=== PATIENT | male | born 1980 | race Caucasian/White ===

== ENCOUNTER 2016-12-23 16:10 | Emergency (ER) | payer MEDICAID, OTHER ==
[~2016-12-23] VITALS: Ht 170.2 cm; Wt 86.2 kg
[2016-12-23 16:15] VITALS: BP 173/107
--- NOTE | 2016-12-23 16:39 | NUR ---
Pt taken to bed 7.
--- NOTE | 2016-12-23 16:44 | NUR ---
36/M PRESENTS TO ED FOR EVALAUTION OF LEFT SIDE/RIB PAIN X3 WEEKS. PT EXPLAINS IS CYPRIOT THAT HE CAME HOME FROM WORK, TOOK OFF HIS WORK SHOES, PLACED ON SANDALS AND TRIPPED OVER HIS WORK SHOES AND LANDED ON THE COUCH. PT DENIES ANY SOB BUT C/O WORSENING PAIN WHEN HE SNEEZES. PT C/O 8/10, ACHING, NON RADIATING PAIN. PT IS AOX4, CYPRIOT SPEAKING WITH CLEAR SPEECH. PT APPEARS CALM AND RELAXED. AT BEDSIDE.
--- NOTE | 2016-12-23 16:53 | NUR ---
Patient being evaluated by physician at bedside.
[2016-12-23] MEDS ORDERED: HYDROcodone/APAP 5/325 MG 1 TAB TAB PO ONE (17:00)
--- NOTE | 2016-12-23 17:15 | NUR ---
Patient taken to x-ray via w/c.
--- NOTE | 2016-12-23 17:22 | NUR ---
Patient returned from x-ray via w/c and placed into bed 7.
[2016-12-23 17:49] VITALS: BP 152/84
--- NOTE | 2016-12-23 17:49 | NUR ---
Chart checked and completed. The patient's care was reviewed and supervised by David Mcdonough RN.
--- NOTE | 2016-12-23 17:49 | NUR ---
Patient discharged with v/s stable. Written and verbal after care instructions given and explained. Patient alert, oriented and verbalized understanding of instructions. Ambulatory with steady gait. All questions addressed prior to discharge. ID band removed. Patient advised to follow up with PMD. Rx of NORCO,MOTRIN given. Patient educated on indication of medication including possible reaction and side effects. Opportunity to ask questions provided and answered.
== END 2016-12-23 17:49 | disposition home or self-care (01) ==
LOC: MED 16:10
DX: S20.212A Contusion of left front wall of thorax, initial encounter (principal); W01.0XXA Fall on same level from slipping, tripping and stumbling without subsequent striking against object, initial encounter; Y93.89 Activity, other specified; Y92.89 Other specified places as the place of occurrence of the external cause; Y99.8 Other external cause status
CPT/HCPCS: 71020; 93005; 99284

== ENCOUNTER 2017-06-26 09:04 | Inpatient (IN) | payer OTHER ==
[2017-06-26] VITALS (7 sets, daily range): BP systolic 116–146; BP diastolic 61–92
[~2017-06-26] VITALS: Ht 170.2 cm; Wt 88.5 kg
--- NOTE | 2017-06-26 09:17 | NUR ---
PATIENT BIB WITH C/O ITCHING FOR ONE MONTH N/V LAST NIGHT WITH EPIGASTRIC PAIN 7/10; JAUNDICE;PT STATES HE FEELS TIRED;SKIN IS YELLOWISH/WARM/DRY; AAOX4 WITH EVEN AND STEADY GAIT; LUNGS CLEAR BL; HR EVEN AND REGULAR; PT DENIES ANY FEVER, CP, SOB, OR COUGH AT THIS TIME; PATIENT STATES PAIN OF 7/10 AT THIS TIME;PATIENT POSITIONED FOR COMFORT; HOB ELEVATED; BEDRAILS UP X2; BED DOWN. ER MD MADE AWARE OF PT STATUS.
--- NOTE | 2017-06-26 09:22 | NUR ---
JAQUEZ AT BEDSIDE.
[2017-06-26] MEDS ORDERED: PANTOPRAZOLE 80 MG in NACL 0.9% 100 ML IV SCH (09:25)
[2017-06-26] MEDS ORDERED: ONDANSETRON 4 MG/2 ML VIAL IVP ONE (09:25)
[2017-06-26] MEDS ORDERED: MULTIVITAMIN-12 10 ML, THIAMINE 100 MG, MAGNESIUM SULFATE 50% 2,000 MG, FOLIC ACID 5 MG... IV ONE ×5 (09:25)
[2017-06-26] MEDS ORDERED: PANTOPRAZOLE 40 MG INJ VIAL IVP ONE (09:37)
[2017-06-26 09:38] LABS: BASOPHILS # (AUTO) 0.3 K/uL (0.00-0.22); BASOPHILS % (AUTO) 4.1 % (0.0-2.0); EOSINOPHILS # (AUTO) 0.1 K/uL (0-0.4); HEMATOCRIT 32.4 % (36-52); HEMOGLOBIN 11.4 g/dL (12.0-18.0); LYMPHOCYTES % (AUTO) 11.3 % (20.5-51.1); MEAN CORPUSCULAR HEMOGLOBIN 33 pg (27-31); MEAN CORPUSCULAR HGB CONC 35 g/dL (33-37); MEAN CORPUSCULAR VOLUME 93 fL (80-94); MONOCYTES # (AUTO) 0.3 K/uL (0.8-1.0); NEUTROPHILS # (AUTO) 6.8 K/uL (1.8-7.7); NEUTROPHILS % (AUTO) 80.6 % (42.2-75.2); PLATELET COUNT (AUTO) 96 K/uL (140-450); RED BLOOD CELL COUNT(AUTO) 3.49 MIL/uL (4.20-6.10); RED CELL DISTRIBUTION WIDTH 14.8 % (11.6-13.7); WHITE BLOOD COUNT (AUTO) 8.5 K/uL (4.8-10.8)
[2017-06-26 09:45] LABS: BILIRUBIN,URINE 3+ (NEGATIVE); BLOOD, URINE NEGATIVE (NEGATIVE); LEUKOCYTE ESTERASE ,URINE NEGATIVE (NEGATIVE); NITRITE, URINE NEGATIVE (NEGATIVE); PH,URINE 6.5 (5.0-9.0); UGLUCOSE TRACE (NEGATIVE)
[2017-06-26 09:47] LABS: APPEARANCE,URINE CLEAR (CLEAR); COLOR,URINE AMBER (YELLOW)
[2017-06-26 09:48] LABS: RBC,URINE 0-5 (RARE) /HPF (0-5); WBC,URINE 0-5 (RARE) /HPF (0-5)
--- NOTE | 2017-06-26 09:49 | NUR ---
XRAY AT BEDSIDE.
[2017-06-26 09:52] LABS: PROTHROMBIN TIME 11.8 secs (10.8-13.4)
[2017-06-26 10:03] LABS: ALBUMIN 2.3 g/dL (3.4-5.0); ANION GAP 14.5 (8-16); CARBON DIOXIDE 26.1 mmol/L (21-32); CREATININE 1.1 mg/dL (0.7-1.3); TOTAL BILIRUBIN 30.8 mg/dL (0.0-1.0)
[2017-06-26 10:08] LABS: POTASSIUM 2.6 mmol/L (3.5-5.1)
[2017-06-26] MEDS ORDERED: POTASSIUM CHL 40 MEQ/ D5-1/2NS 1,000 ML IV ONE (10:10)
[2017-06-26] MEDS ORDERED: NACL 0.9% 1,000 ML IV ONE (10:10)
--- NOTE | 2017-06-26 10:54 | NUR ---
PT VOMITTED BLOOD;;PUT PT IN HIGH FOWLERS POSITION;COMFORT MEASURES DONE;ER NOTIFIED;
[2017-06-26] MEDS ORDERED: VASOPRESSIN 20 UNITS in NACL 0.9% 250 ML IV SCH (10:55)
[2017-06-26] MEDS ORDERED: METOCLOPRAMIDE 10 MG/2 ML INJ VIAL IVP ONE (10:55)
[2017-06-26] MEDS ORDERED: PROCHLORPERAZINE 10 MG/2 ML VIAL IVP ONE (10:55)
[2017-06-26] MEDS ORDERED: NACL 0.9% 1,000 ML IV SCH (11:08)
[2017-06-26] MEDS ORDERED: ONDANSETRON 4 MG/2 ML VIAL IVP PRN (11:10)
[2017-06-26] MEDS ORDERED: OCTREOTIDE ACETATE 1.25 MG in NACL 0.9% 250 ML IV SCH (11:15)
[2017-06-26] MEDS ORDERED: OCTREOTIDE ACETATE 100 MCG/ML VIAL IV SCH (11:20)
--- NOTE | 2017-06-26 11:32 | NUR ---
WENT TO CT SCAN ACCOMPANIED BY TECH.
[2017-06-26] MEDS ORDERED: PANTOPRAZOLE 80 MG in NACL 0.9% 100 ML IVP SCH (11:35)
--- NOTE | 2017-06-26 11:36 | NUR ---
Patient will be admitted to care of DR GUZMAN. Admited to ICU. Will go to room 3. Belongings list completed. Report to ESTEFANI ESCAMILLA.
[2017-06-26 11:44] LABS: CHOL/HDL RATIO 7.6 (1-4.5); MAGNESIUM 2.1 mg/dL (1.8-2.4); PHOSPHORUS 2.5 mg/dL (2.5-4.9); THYROID STIMULATING HORMONE 0.43 uIU/mL (0.34-3.74)
--- NOTE | 2017-06-26 12:20 | NUR ---
PT TRANSFERRED TO ICU TO ER VIA NICHOLAS X 2 ASSISTS. PT IS ALERT AND ORIENTED X 4, FOLLOW COMMANDS, ABLE TO MAKE NEEDS KNOWN. SINUS TACHY ON MONITOR. LUNGS SOUND CLEAR BILATERALLY. PERIPHERAL IVS #20G TO LEFT HAND, RIGHT HAND, AND RIGHT ANTECUBITAL PATENT AND INTACT, FLOWING ORDERED IV FLUID AND MEDICATIONS. DENIES ABDOMINAL PAIN OR DISCOMFORT, NO NAUSEA/ VOMITING UPON ARRIVAL. AT BEDSIDE. NO SIGNS OF ACUTE DISTRESS NOTED AT THIS TIME. BED IN LOWEST POSITION AND CALL LIGHT WITHIN REACH. WILL CONTINUE TO MONITOR. Addendum: 06/26/17 at 1943 by Viri Lozada RN FROM ER
[2017-06-26] MEDS ORDERED: MORPHINE SULFATE 2 MG/ML SYR IVP PRN ×2 (12:35→17:15)
[2017-06-26] MEDS ORDERED: PANTOPRAZOLE 40 MG INJ VIAL IVP SCH (13:00)
[2017-06-26 13:20] LABS: BARBITURATE, URINE NEG. ng/ml (NEG <=200); BENZODIAZEPINE, URINE NEG. ng/mL (NEG <=200); CANNABINOID, URINE NEG. ng/mL (NEG <=50); COCAINE, URINE NEG. ng/mL (NEG <=300); OPIATE, URINE NEG. ng/mL (NEG <=2000); PHENCYCLIDINE SCREEN,URINE NEG. ng/mL (NEG <=25)
[2017-06-26] MEDS ORDERED: LORazepam 2 MG/ML VIAL IVP PRN (13:25)
[2017-06-26] MEDS ORDERED: LACTULOSE 20 GM/30 ML UDC PO SCH ×2 (13:30→21:00)
[2017-06-26 13:38] LABS: BASOPHILS # (AUTO) 0.1 K/uL (0.00-0.22); BASOPHILS % (AUTO) 0.6 % (0.0-2.0); EOSINOPHILS # (AUTO) 0.1 K/uL (0-0.4); EOSINOPHILS % (AUTO) 0.7 % (0.0-4.0); HEMATOCRIT 25.7 % (36-52); HEMOGLOBIN 8.9 g/dL (12.0-18.0); LYMPHOCYTES # (AUTO) 1.4 K/uL (2.0-11.5); LYMPHOCYTES % (AUTO) 16.9 % (20.5-51.1); MEAN CORPUSCULAR HEMOGLOBIN 33 pg (27-31); MEAN CORPUSCULAR HGB CONC 35 g/dL (33-37); MEAN CORPUSCULAR VOLUME 94 fL (80-94); MONOCYTES # (AUTO) 0.4 K/uL (0.8-1.0); MONOCYTES % (AUTO) 4.4 % (1.7-9.3); NEUTROPHILS # (AUTO) 6.4 K/uL (1.8-7.7); NEUTROPHILS % (AUTO) 77.4 % (42.2-75.2); PLATELET COUNT (AUTO) 82 K/uL (140-450); RED BLOOD CELL COUNT(AUTO) 2.75 MIL/uL (4.20-6.10); RED CELL DISTRIBUTION WIDTH 14.9 % (11.6-13.7); WHITE BLOOD COUNT (AUTO) 8.4 K/uL (4.8-10.8)
[2017-06-26] MEDS ORDERED: prednisoLONE 15 MG/5 ML UDC PO SCH (14:00)
[2017-06-26 14:02] LABS: PROTHROMBIN TIME 12.1 secs (10.8-13.4)
[2017-06-26] MEDS ORDERED: KCL 20 MEQ/WATER INJ PREMIX 100 ML IV SCH (14:15)
[2017-06-26] MEDS ORDERED: MIDAZOLAM 2 MG/2 ML VIAL ONE ×2 (14:38)
[2017-06-26] MEDS ORDERED: fentaNYL 0.05 MG/ML VIAL ONE (14:38)
[2017-06-26] MEDS ORDERED: diphenhydrAMINE 50 MG/ML VIAL ONE (14:39)
--- NOTE | 2017-06-26 15:00 | NUR ---
DR. GRIJALVA AT BEDSIDE DOING EGD, OR NURSES AT BEDSIDE.
[2017-06-26] MEDS ORDERED: diphenhydrAMINE 50 MG/ML VIAL IVP ONE (15:40)
[2017-06-26] MEDS ORDERED: MIDAZOLAM 2 MG/2 ML VIAL IVP ONE (15:40)
[2017-06-26] MEDS ORDERED: fentaNYL 0.05 MG/ML VIAL IVP ONE (15:40)
[2017-06-26 15:50] LABS: ANION GAP 13.1 (8-16); CARBON DIOXIDE 25.9 mmol/L (21-32); CREATININE 0.7 mg/dL (0.7-1.3); TOTAL BILIRUBIN 25.7 mg/dL (0.0-1.0)
[2017-06-26] MEDS ORDERED: MIDAZOLAM 2 MG/2 ML VIAL IVP SCH (15:56)
[2017-06-26] MEDS ORDERED: diphenhydrAMINE 50 MG/ML VIAL IVP SCH (15:57)
[2017-06-26] MEDS ORDERED: fentaNYL 0.05 MG/ML VIAL IVP SCH (15:57)
[2017-06-26] MEDS ORDERED: KETOROLAC 15 MG/ML VIAL IVP PRN (16:25)
[2017-06-26] MEDS ORDERED: POTASSIUM CHLORIDE 40 MEQ, LIDOCAINE 1% 25 MG in NACL 0.9% 250 ML IV SCH (17:00)
--- NOTE | 2017-06-26 17:20 | NUR ---
ATE 25% OF DINNER. ON CLEAR LIQUID DIET.
[2017-06-26] MEDS: PROPRANOLOL 20 MG TAB PO SCH (17:36)
[2017-06-26] MEDS: LACTULOSE 20 GM/30 ML UDC PO SCH (17:37)
--- NOTE | 2017-06-26 18:15 | NUR ---
HAD APPROXIMATELY 800 ML OF DARK BROWN/ BLACK LIQUID BOWEL MOVEMENT WITH CLOTS. PT COMPLAINED OF DIZZINESS. VS STABLE. RESTING COMFORTABLE IN BED AFTER HAVING BOWEL MOVEMENT.
[2017-06-26 18:26] LABS: BASOPHILS # (AUTO) 0.1 K/uL (0.00-0.22); BASOPHILS % (AUTO) 1.5 % (0.0-2.0); EOSINOPHILS # (AUTO) 0.1 K/uL (0-0.4); EOSINOPHILS % (AUTO) 0.8 % (0.0-4.0); HEMATOCRIT 26.3 % (36-52); HEMOGLOBIN 9.1 g/dL (12.0-18.0); LYMPHOCYTES # (AUTO) 1.6 K/uL (2.0-11.5); LYMPHOCYTES % (AUTO) 17.7 % (20.5-51.1); MEAN CORPUSCULAR HEMOGLOBIN 33 pg (27-31); MEAN CORPUSCULAR HGB CONC 35 g/dL (33-37); MEAN CORPUSCULAR VOLUME 95 fL (80-94); MONOCYTES # (AUTO) 0.4 K/uL (0.8-1.0); MONOCYTES % (AUTO) 4.1 % (1.7-9.3); NEUTROPHILS # (AUTO) 6.8 K/uL (1.8-7.7); NEUTROPHILS % (AUTO) 75.9 % (42.2-75.2); PLATELET COUNT (AUTO) 75 K/uL (140-450); RED BLOOD CELL COUNT(AUTO) 2.76 MIL/uL (4.20-6.10); RED CELL DISTRIBUTION WIDTH 14.9 % (11.6-13.7); WHITE BLOOD COUNT (AUTO) 8.9 K/uL (4.8-10.8)
--- NOTE | 2017-06-26 19:21 | NUR ---
REPORT GIVEN TO NIGHT RN FOR CONTINUITY OF CARE. PT IS IN STABLE CONDITION.
--- NOTE | 2017-06-26 19:30 | NUR ---
RECEIVED REPORT FROM AM NURSE. PT IS A/O X4. VERBALLY RESPONSIVE. ABLE TO COMMUNICATE NEEDS. DENIES ANY PAIN OR DISCOMFORT. PT ON RA. TOLERATING WELL. SR ON MONITOR. SKIN INTACT. ABLE TO AMBULATE TO BEDSIDE COMMODE WITH STEADY GAIT. IV NOTED ON R AC 20 GAUGE. INTACT AND PATENT. IV NOTED ON L HAND 20 GAUGE. INTACT AND PATENT. IV NOTED ON 2O GAUGE. INTACT AND PATENT. CONTINUING SANDOSTATIN. ABLE TO VOID INDEPENDENTLY. PT NOTED WITH BLOODY LOOSE STOOL. AWARE. SAFETY PRECAUTION MAINTAINED. BED AT LOWEST SETTING. CALL LIGHT WITHIN REACH. WILL CONTINUE TO MONITOR.
--- NOTE | 2017-06-26 20:15 | NUR ---
PT AMBULATE TO BEDSIDE COMMODE FOR BM. NOTED TO HAVE MODERATE AMOUNT OF LIQUID BLOODY STOOL. MD AWARE. WILL CONTINUE TO MONITOR.
[2017-06-26] MEDS: PANTOPRAZOLE 40 MG INJ VIAL IVP SCH (20:48)
[2017-06-26] MEDS: LORazepam 1 MG TAB PO SCH (20:48)
[2017-06-26] MEDS: METOCLOPRAMIDE 10 MG/2 ML INJ VIAL IVP SCH (20:48)
--- NOTE | 2017-06-26 20:49 | NUR ---
MEDICATION ADMINISTERED ORDERED. TOLERATED WELL. WILL CONTINUE TO MONITOR FOR CHANGES
[2017-06-26] MEDS ORDERED: DOCUSATE SODIUM 100 MG GELCAP PO SCH (21:00)
--- NOTE | 2017-06-26 21:00 | NUR ---
PT SLEEPING IN BED. NO S/SX OF ACUTE DISTRESS. WILL CONTINUE TO MONITOR.
[2017-06-27] VITALS (8 sets, daily range): BP systolic 99–120; BP diastolic 58–81
--- NOTE | 2017-06-27 | NUR ---
PT AMBULATE TO BEDSIDE COMMODE. NOTED TO HAVE LOOSE BLOODY STOOL. DARK RED IN NATURE. WILL CONTINUE TO MONITOR.
--- NOTE | 2017-06-27 01:00 | NUR ---
PT AWAKE. DENIES PAIN OR DISCOMFORT. WILL CONTINUE TO MONITOR.
[2017-06-27 01:21] LABS: BASOPHILS # (AUTO) 0.2 K/uL (0.00-0.22); BASOPHILS % (AUTO) 1.6 % (0.0-2.0); EOSINOPHILS # (AUTO) 0.3 K/uL (0-0.4); EOSINOPHILS % (AUTO) 2.4 % (0.0-4.0); HEMATOCRIT 25.2 % (36-52); HEMOGLOBIN 8.8 g/dL (12.0-18.0); MEAN CORPUSCULAR HEMOGLOBIN 33 pg (27-31); MEAN CORPUSCULAR HGB CONC 35 g/dL (33-37); MEAN CORPUSCULAR VOLUME 95 fL (80-94); MONOCYTES # (AUTO) 0.5 K/uL (0.8-1.0); MONOCYTES % (AUTO) 4.2 % (1.7-9.3); NEUTROPHILS # (AUTO) 8.4 K/uL (1.8-7.7); NEUTROPHILS % (AUTO) 73.8 % (42.2-75.2); PLATELET COUNT (AUTO) 91 K/uL (140-450); RED BLOOD CELL COUNT(AUTO) 2.65 MIL/uL (4.20-6.10); RED CELL DISTRIBUTION WIDTH 15.1 % (11.6-13.7); WHITE BLOOD COUNT (AUTO) 11.4 K/uL (4.8-10.8)
--- NOTE | 2017-06-27 02:00 | NUR ---
PT SLEEPING IN BED. FLACC 0. VITALS SIGN STABLE. WILL CONTINUE TO MONITOR.
--- NOTE | 2017-06-27 03:00 | NUR ---
PT SLEEPING IN BED. FLACC 0. VITALS SIGN STABLE. WILL CONTINUE TO MONITOR.
--- NOTE | 2017-06-27 04:00 | NUR ---
PT SLEEPING IN BED. FLACC 0. VITALS SIGN STABLE. WILL CONTINUE TO MONITOR.
[2017-06-27 04:55] LABS: BASOPHILS # (AUTO) 0.1 K/uL (0.00-0.22); EOSINOPHILS # (AUTO) 0.3 K/uL (0-0.4); EOSINOPHILS % (AUTO) 3.8 % (0.0-4.0); HEMATOCRIT 23.5 % (36-52); HEMOGLOBIN 7.9 g/dL (12.0-18.0); LYMPHOCYTES # (AUTO) 1.4 K/uL (2.0-11.5); LYMPHOCYTES % (AUTO) 15.7 % (20.5-51.1); MEAN CORPUSCULAR HEMOGLOBIN 32 pg (27-31); MEAN CORPUSCULAR HGB CONC 34 g/dL (33-37); MEAN CORPUSCULAR VOLUME 95 fL (80-94); MONOCYTES # (AUTO) 0.4 K/uL (0.8-1.0); MONOCYTES % (AUTO) 4.2 % (1.7-9.3); NEUTROPHILS # (AUTO) 6.6 K/uL (1.8-7.7); NEUTROPHILS % (AUTO) 75.3 % (42.2-75.2); PLATELET COUNT (AUTO) 66 K/uL (140-450); RED BLOOD CELL COUNT(AUTO) 2.47 MIL/uL (4.20-6.10); RED CELL DISTRIBUTION WIDTH 14.7 % (11.6-13.7)
--- NOTE | 2017-06-27 05:00 | NUR ---
PT SLEEPING IN BED. FLACC 0. VITALS SIGN STABLE. WILL CONTINUE TO MONITOR.
[2017-06-27 05:15] LABS: PROTHROMBIN TIME 11.1 secs (10.8-13.4)
[2017-06-27 05:25] LABS: MAGNESIUM 2.2 mg/dL (1.8-2.4); PHOSPHORUS 3.1 mg/dL (2.5-4.9)
[2017-06-27 05:34] LABS: ANION GAP 9.2 (8-16); CARBON DIOXIDE 29.1 mmol/L (21-32); CREATININE 0.9 mg/dL (0.7-1.3); POTASSIUM 3.3 mmol/L (3.5-5.1); TOTAL BILIRUBIN 28.2 mg/dL (0.0-1.0)
[2017-06-27] MEDS: METOCLOPRAMIDE 10 MG/2 ML INJ VIAL IVP SCH ×3 (05:51→20:42)
[2017-06-27] MEDS: LORazepam 1 MG TAB PO SCH ×3 (05:51→21:01)
[2017-06-27 06:12] LABS: WHITE BLOOD COUNT (AUTO) 8.8 K/uL (4.8-10.8)
--- NOTE | 2017-06-27 06:24 | NUR ---
PT SLEEPING IN BED. FLACC 0. VITALS SIGN STABLE. WILL CONTINUE TO MONITOR.
[2017-06-27 07:23] LABS: HEPATITIS A ANTIBODY IGM Negative (Negative); HEPATITIS B CORE AB TOTAL Negative (Negative); HEPATITIS B SURFACE AB Non Reactive (.); HEPATITIS B SURFACE ANTIGEN Negative (Negative)
--- NOTE | 2017-06-27 07:45 | NUR ---
RECEIVED A REPORT FROM ESTEFANI DE JESUS. PT IS ALERT AND ORIENTED X 4. NO S/SX OF RESPIRATORY DISTRESS AND DENIES PAIN AT THIS TIME. SR ON THE MONITOR. SKIN WARM TO TOUCH AND YELLOWISH COLOR. PERIPHERAL IV SITE ON LT HAND 20@, RT HAND 20G, RT AC 20G, PATENT AND INTACT. NO EDEMA NOTED. ON SCD. STANDARD PRECAUTION AND SAFETY PRECAUTION. BED IN LOW POSITION, CALL LIGHT WITHIN REACH. WILL CONTINUE TO MONITOR.
--- NOTE | 2017-06-27 07:48 | NUR ---
REPORT GIVEN TO AVEL RN. PT IS STABLE.
[2017-06-27] MEDS: PANTOPRAZOLE 40 MG INJ VIAL IVP SCH ×2 (08:44→20:42)
[2017-06-27] MEDS: prednisoLONE 15 MG/5 ML UDC PO SCH (08:45)
[2017-06-27] MEDS: LACTULOSE 20 GM/30 ML UDC PO SCH ×3 (08:45→17:13)
[2017-06-27] MEDS: THIAMINE 100 MG TAB PO SCH (08:46)
[2017-06-27] MEDS: SPIRONOLACTONE 50 MG TAB PO SCH (08:46)
[2017-06-27] MEDS: PROPRANOLOL 20 MG TAB PO SCH ×3 (08:46→16:59)
[2017-06-27] MEDS: MULTIVITAMIN 1 TAB PO SCH (08:47)
--- NOTE | 2017-06-27 08:52 | NUR ---
PATIENT HAS BEEN SCREENED AND CATEGORIZED HIGH NUTRITION RISK. PATIENT WILL BE SEEN WITHIN 1-2 DAYS OF ADMISSION. 06/26/17-06/27/[address]
[2017-06-27] MEDS ORDERED: PANTOPRAZOLE 40 MG INJ VIAL IVP SCH (09:00)
--- NOTE | 2017-06-27 09:00 | NUR ---
PT TOLERATED MEDICATIONS WELL.
[2017-06-27] MEDS: NACL 0.9% 1,000 ML IV SCH ×2 (09:03→20:55)
--- NOTE | 2017-06-27 09:04 | NUR ---
DR. DESAI AWARE OF POTASSIUM LEVEL 3.3. WILL FOLLOW UP ON ORDERS
--- NOTE | 2017-06-27 09:15 | NUR ---
RECEIVED CALLBACK FROM DR. LARSON AND PER DR. LARSON, START FULL LIQUID DIET FOR THE PT. Addendum: 06/27/17 at 2136 by Rupesh Ware RN CORRECTION OF NAME OF IT IS DR. GRIJALVA.
--- NOTE | 2017-06-27 09:22 | NUR ---
PT'S IS AT BEDSIDE AND UPDATED OF PT'S CURRENT CONDITION
[2017-06-27] MEDS: FOLIC ACID 1 MG TAB PO SCH (09:53)
[2017-06-27] MEDS: RIFAXIMIN 550 MG TAB PO SCH ×2 (09:53→21:02)
[2017-06-27] MEDS: DOCUSATE 100 MG/10 ML UDC PO SCH ×2 (09:54→21:01)
[2017-06-27] MEDS: LACTOBACILLUS RHAMNOSUS GG 1 EACH CAP PO SCH (09:54)
--- NOTE | 2017-06-27 09:55 | NUR ---
DR. ARNOLD IN TO SEE PT. WILL FOLLOW UP ON ORDERS.
[2017-06-27] MEDS ORDERED: POTASSIUM CHLORIDE 10 MEQ TABER PO SCH (10:00)
--- NOTE | 2017-06-27 11:05 | NUR ---
PT STABLE. NO C/O PAIN OR ANY DISCOMFORT AT THIS TIME.
--- NOTE | 2017-06-27 11:34 | NUR ---
06/27/17 RD INITIAL ASSESSMENT COMPLETED PLEASE REFER TO NUTRITION ASSESSMENT UNDER CARE ACTIVITY FOR ESTIMATED NUTRITIONAL NEEDS. 1. CONTINUE FULL LIQUID DIET, ADVANCE TOLERATED TO 2G SODIUM DIET 2. CONTINUE THIAMINE & FOLIC ACID SUPPLEMENT 3. ENCOURAGE INCREASED PO INTAKE TO TOLERANCE 4. PROVIDE NUTRITION THERAPY EDUCATION NEEDED 5. RD TO FOLLOW-UP 2-3 DAYS, HIGH RISK FILIPE COX, MED
--- NOTE | 2017-06-27 12:36 | NUR ---
FAXED INITIAL REVIEW TO [facility] [phone] PHONE [phone] [id number] QAMAR
--- NOTE | 2017-06-27 12:43 | NUR ---
DR. MCDONALD IN TO SEE PT AND UPDATED OF PT'S CURRENT CONDITION TO PT'S AT BEDSIDE.
[2017-06-27] MEDS ORDERED: INFLUENZA VIRUS VACCINE QUAD 0.5 ML SYR IMVAC SCH (12:55)
--- NOTE | 2017-06-27 13:30 | NUR ---
PT TOLERATED MEDICATIONS WELL.
--- NOTE | 2017-06-27 15:11 | NUR ---
REPORT GIVEN TO ESTEFANI DENIS. PT WILL BE TRANSFERRED TO TELE UNIT ROOM 119A. PT STABLE.
--- NOTE | 2017-06-27 15:40 | NUR ---
RECEIVED PT ON UNIT FROM ICU, RECEIVED REPORT FROM ESTEFANI BARAKAT. PT IS A/OX4, AMBULATORY, PATIENT'S SKIN IS YELLOW, EYES ARE NOTED TO BE YELLOW, SKIN IS INTACT, IV IS ON THE RT AC, RT HAND AND LEFT HAND PATENT INTACT, FLUSHING WELL, NO S/S OF RESPIRATORY DISTRESS OR DISCOMFORT NOTED, DISCUSSED PLAN OF CARE WITH PT, PT VERBALIZED UNDERSTANDING, ORIENTED PT TO ROOM, SAFETY/FALL PRECAUTIONS ARE IN PLACE, CALL LIGHT WITHIN REACH, WILL CONTINUE TO MONITOR.
--- NOTE | 2017-06-27 15:44 | NUR ---
PT WAS TRANSFERRED TO TELE UNIT ROOM 119A. PT STABLE.
--- NOTE | 2017-06-27 17:17 | NUR ---
PATIENT HAD LOOSE, WATERY BOWEL MOVEMENT, NO BLOOD NOTED.
--- NOTE | 2017-06-27 19:14 | NUR ---
ENDORSED PT TO DRILLER AND BROACHER NURSE FOR CONTINUITY OF CARE, PT STABLE AT THIS TIME.
--- NOTE | 2017-06-27 19:15 | NUR ---
RECD. RESTING IN BED, AWAKE, A/OX4. RESPIRATION EVEN AND UNLABORED. IV OF NS AT 80 ML/HR INFUSING, RIGHT AC G 20, SANDOSTATIN IVPB INFUSING AT 5 ML/HR ON LEFT HAND G20, ON BILATERAL LEG SEQUENTIALS. PLAN OF CARE FOR THE SHIFT DISCUSSED. VERBALIZED UNDERSTANDING. DENIES PAIN 0/10.
--- NOTE | 2017-06-27 19:15 | NUR ---
Patient's Plan of Care was discussed and reviewed with RADIOLOGY RESIDENT: BARRY ORDONEZ
--- NOTE | 2017-06-27 21:05 | NUR ---
DUE PO MEDICATIONS GIVEN, TOLERATED WELL.
[2017-06-28] VITALS (7 sets, daily range): BP systolic 90–130; BP diastolic 53–84
--- NOTE | 2017-06-28 | NUR ---
SLEEPING COMFORTABLY IN BED.
[2017-06-28] MEDS: NACL 0.9% 1,000 ML IV SCH ×3 (00:58→18:52)
--- NOTE | 2017-06-28 04:00 | NUR ---
AMBULATED TWICE TO BR TO HAVE BM. NO NOTED BLOOD IN THE STOOLS.
[2017-06-28 05:28] LABS: BASOPHILS # (AUTO) 0.1 K/uL (0.00-0.22); BASOPHILS % (AUTO) 1.6 % (0.0-2.0); EOSINOPHILS # (AUTO) 0.1 K/uL (0-0.4); EOSINOPHILS % (AUTO) 1.2 % (0.0-4.0); HEMATOCRIT 23.1 % (36-52); HEMOGLOBIN 7.9 g/dL (12.0-18.0); LYMPHOCYTES % (AUTO) 12.7 % (20.5-51.1); MEAN CORPUSCULAR HEMOGLOBIN 34 pg (27-31); MEAN CORPUSCULAR HGB CONC 34 g/dL (33-37); MEAN CORPUSCULAR VOLUME 97 fL (80-94); MONOCYTES # (AUTO) 0.4 K/uL (0.8-1.0); NEUTROPHILS % (AUTO) 79.5 % (42.2-75.2); PLATELET COUNT (AUTO) 76 K/uL (140-450); RED BLOOD CELL COUNT(AUTO) 2.38 MIL/uL (4.20-6.10); RED CELL DISTRIBUTION WIDTH 15.3 % (11.6-13.7); WHITE BLOOD COUNT (AUTO) 7.6 K/uL (4.8-10.8)
[2017-06-28] MEDS: METOCLOPRAMIDE 10 MG/2 ML INJ VIAL IVP SCH ×3 (05:56→20:09)
[2017-06-28] MEDS: LORazepam 1 MG TAB PO SCH ×3 (06:00→20:09)
[2017-06-28 06:01] LABS: ANION GAP 11.1 (8-16); CARBON DIOXIDE 27.2 mmol/L (21-32); CREATININE 0.9 mg/dL (0.7-1.3); POTASSIUM 3.3 mmol/L (3.5-5.1)
[2017-06-28 06:21] LABS: PHOSPHORUS 3.5 mg/dL (2.5-4.9)
[2017-06-28] MEDS ORDERED: POTASSIUM CHLORIDE 40 MEQ, LIDOCAINE 1% 25 MG in NACL 0.9% 250 ML IV ONE (06:25)
--- NOTE | 2017-06-28 07:00 | NUR ---
CONDITION REMAIN STABLE. ALL NEEDS ATTENDED. WILL ENDORSE TO AM NURSE FOR CONTINUITY OF CARE.
--- NOTE | 2017-06-28 07:25 | NUR ---
ENDORSED TO Chica GONZALEZ FOR CONTINUITY OF CARE.
--- NOTE | 2017-06-28 07:26 | NUR ---
RECEIVED REPORT AT BEDSIDE FOR CONTINUITY OF CARE. PT IS AWAKE AND ORIENTED. INTRODUCED MYSELF AND UPDATED THE BOARD. V/S WITHIN NORMAL RANGE. PT IS STILL JAUNDICED. SOME PAIN ACROSS THE CHEST. 11/25. REFUSED PAIN MED. PER RHEUMATOLOGY SPECIALIST NURSE, PT HAD 2 BM IN HER SHIFT, ONE THIS MORNING. NO BLOOD NOTED. TODAY K IS LOW. WILL TALK TO MD ABOUT REPLENISHING. DRS HERE. WANTS TO KEEP HIM ONE MORE DAY FOR MONITORING. SKIN IS INTACT. YELLOW SCLERA, YELLOW SKIN. IV L AC 20G, L HAND 20G, R HAND 20G, NS AT 20ML. WILL CONTINUE TO MONITOR PT.
[2017-06-28] MEDS: THIAMINE 100 MG TAB PO SCH (09:17)
[2017-06-28] MEDS: PROPRANOLOL 20 MG TAB PO SCH ×3 (09:17→17:21)
[2017-06-28] MEDS: SPIRONOLACTONE 50 MG TAB PO SCH (09:18)
[2017-06-28] MEDS: LACTOBACILLUS RHAMNOSUS GG 1 EACH CAP PO SCH (09:18)
[2017-06-28] MEDS: DOCUSATE 100 MG/10 ML UDC PO SCH ×2 (09:18→20:09)
[2017-06-28] MEDS: MULTIVITAMIN 1 TAB PO SCH (09:18)
[2017-06-28] MEDS: FOLIC ACID 1 MG TAB PO SCH (09:19)
[2017-06-28] MEDS: LACTULOSE 20 GM/30 ML UDC PO SCH ×3 (09:19→17:21)
[2017-06-28] MEDS: PANTOPRAZOLE 40 MG INJ VIAL IVP SCH ×2 (09:19→20:10)
[2017-06-28] MEDS: prednisoLONE 15 MG/5 ML UDC PO SCH (09:23)
--- NOTE | 2017-06-28 09:30 | NUR ---
PT RESTING COMFORTABLY. NO SIGNS OF DISTRESS. FAMILY AT BEDSIDE. WILL CONTINUE TO MONITOR PT.
[2017-06-28] MEDS: RIFAXIMIN 550 MG TAB PO SCH ×2 (09:32→20:09)
--- NOTE | 2017-06-28 10:26 | NUR ---
FAXED CONCURRENT REVIEW TO [facility] [phone] PHONE [phone]
--- NOTE | 2017-06-28 13:20 | NUR ---
PT IS RESTING COMFORTABLY. SPOUSE AT BEDSIDE. NO SIGNS OF DISTRESS. AMBULATED TO THE BATHROOM. WILL CONTINUE TO MONITOR PT.
--- NOTE | 2017-06-28 16:30 | NUR ---
PT RESTING COMFORTABLY. NO SIGNS OF DISTRESS. WILL CONTINUE TO MONITOR PT.
--- NOTE | 2017-06-28 19:15 | NUR ---
ENDORSED PT TO THE LATEXER AT BEDSIDE FOR CONTINUITY OF CARE. PT IS IN STABLE CONDITION.
--- NOTE | 2017-06-28 19:20 | NUR ---
RECEIVED FROM AM RN IN BED AWAKE AND ALERT. NO SOB. DENIES PAIN AT THIS TIME. CALL LIGHT WITH IN REACH AND ABLE TO VERBALIZE NEEDS WELL. SPEAKS PERSIAN AND FRENCH. PT. AMBULATES WELL BY HIMSELF. TELEMETRY MONITORING. IVF SITES INTACT AND NO INFILTRATION. CARE PLANS FOR THE NIGHT DISCUSSED WITH HIM. DX. OF GI BLEED. NO REPORTED BLEEDING REPORTED BY AM RN.
--- NOTE | 2017-06-28 22:30 | NUR ---
PT. STILL AWAKE AND WATCHING TV. ABLE TO VERBALIZE SIMPLE NEEDS. NO PAIN COMPLAINTS DONE. GOOD AFFECT. TELEMETRY MONITORING AND NO BLEEDING REPORTED.
--- NOTE | 2017-06-29 | NUR ---
SLEEPING WELL. NO RESTLESSNESS. SLEEPING. WAKES UP EASILY WHEN TOUCHED. TELEMETRY MONITORING. ORIENTED X 4.
[2017-06-29 04:00] VITALS: BP 113/68
[2017-06-29] MEDS: METOCLOPRAMIDE 10 MG/2 ML INJ VIAL IVP SCH ×2 (05:26→12:33)
[2017-06-29] MEDS: LORazepam 1 MG TAB PO SCH ×2 (05:26→12:30)
--- NOTE | 2017-06-29 05:30 | NUR ---
AWAKE AT THIS TIME. WALKING HALLWAY. NO PAIN COMPLAINTS DONE AND NO BLEEDING REPORTED. TELEMETRY MONITORING. IVF SITE INTACT AND NO INFILTRATION NOTED.
[2017-06-29 06:10] LABS: BASOPHILS # (AUTO) 0.2 K/uL (0.00-0.22); BASOPHILS % (AUTO) 2.2 % (0.0-2.0); EOSINOPHILS # (AUTO) 0.1 K/uL (0-0.4); HEMATOCRIT 23.1 % (36-52); HEMOGLOBIN 8.1 g/dL (12.0-18.0); LYMPHOCYTES # (AUTO) 2.2 K/uL (2.0-11.5); LYMPHOCYTES % (AUTO) 23.4 % (20.5-51.1); MEAN CORPUSCULAR HEMOGLOBIN 34 pg (27-31); MEAN CORPUSCULAR HGB CONC 35 g/dL (33-37); MEAN CORPUSCULAR VOLUME 98 fL (80-94); MONOCYTES # (AUTO) 0.4 K/uL (0.8-1.0); NEUTROPHILS # (AUTO) 6.6 K/uL (1.8-7.7); NEUTROPHILS % (AUTO) 69.4 % (42.2-75.2); PLATELET COUNT (AUTO) 90 K/uL (140-450); RED BLOOD CELL COUNT(AUTO) 2.35 MIL/uL (4.20-6.10); RED CELL DISTRIBUTION WIDTH 15.5 % (11.6-13.7); WHITE BLOOD COUNT (AUTO) 9.5 K/uL (4.8-10.8)
[2017-06-29 06:54] LABS: ANION GAP 9.8 (8-16); CARBON DIOXIDE 25.5 mmol/L (21-32); PHOSPHORUS 3.8 mg/dL (2.5-4.9); POTASSIUM 3.3 mmol/L (3.5-5.1); TOTAL BILIRUBIN 25.5 mg/dL (0.0-1.0)
--- NOTE | 2017-06-29 07:28 | NUR ---
RECEIVED REPORT FROM TUBE MACHINE OPERATOR HELPER NURSE AT BEDSIDE. PATIENT AWAKE. DENIES PAIN. NO COMPLAINT OF BLEEDING. IV ON RIGHT HAND #20G AND RIGHT AC 20G WITH NS INFUSING WELL.
[2017-06-29 08:00] VITALS: BP 113/69
[2017-06-29] MEDS: NACL 0.9% 1,000 ML IV SCH (08:38)
[2017-06-29] MEDS: LACTULOSE 20 GM/30 ML UDC PO SCH ×2 (08:41→12:28)
[2017-06-29] MEDS: PANTOPRAZOLE 40 MG INJ VIAL IVP SCH (08:42)
[2017-06-29] MEDS: DOCUSATE 100 MG/10 ML UDC PO SCH (08:42)
[2017-06-29] MEDS: FOLIC ACID 1 MG TAB PO SCH (08:42)
[2017-06-29] MEDS: LACTOBACILLUS RHAMNOSUS GG 1 EACH CAP PO SCH (08:43)
[2017-06-29] MEDS: MULTIVITAMIN 1 TAB PO SCH (08:43)
[2017-06-29] MEDS: THIAMINE 100 MG TAB PO SCH (08:43)
[2017-06-29] MEDS: SPIRONOLACTONE 50 MG TAB PO SCH (08:43)
[2017-06-29] MEDS: PROPRANOLOL 20 MG TAB PO SCH ×2 (08:43→12:30)
[2017-06-29] MEDS: RIFAXIMIN 550 MG TAB PO SCH (08:55)
--- NOTE | 2017-06-29 08:57 | NUR ---
ADMINISTERED MORNING MEDS. PATIENT TOLERATED WELL. WILL CONTINUE TO MONITOR PT.
[2017-06-29] MEDS: prednisoLONE 15 MG/5 ML UDC PO SCH (09:00)
--- NOTE | 2017-06-29 11:00 | NUR ---
PATIENT RESTING COMFORTABLY. DENIES PAIN. PT AWARE HE WILL BE DC'D TODAY. WILL CONTINUE TO MONITOR PT.
[2017-06-29 12:00] VITALS: BP 110/81
[2017-06-29] MEDS ORDERED: SPIR50TA PO (12:00)
[2017-06-29] MEDS ORDERED: MULT-405 PO (12:00)
[2017-06-29] MEDS ORDERED: FOLI1TAB90 PO (12:00)
[2017-06-29] MEDS ORDERED: IND20 PO (12:00)
[2017-06-29] MEDS ORDERED: THIA-8 PO (12:00)
[2017-06-29] MEDS ORDERED: LORA-476 PO (12:00)
[2017-06-29] MEDS ORDERED: PRED15SY PO (12:00)
[2017-06-29] MEDS ORDERED: POTASSIUM CHLORIDE 40 MEQ, LIDOCAINE 1% 25 MG in NACL 0.9% 250 ML IV SCH (12:15)
[2017-06-29] MEDS ORDERED: POTASSIUM CHLORIDE 10 MEQ TABER PO SCH (12:15)
[2017-06-29] MEDS ORDERED: CYAN-11 PO (12:36)
[2017-06-29] MEDS ORDERED: LACT10SO11 PO (12:42)
--- NOTE | 2017-06-29 13:03 | NUR ---
CM NOTE CONCURRENT REVIEW FAXED TO [facility] / FAX# [phone], ATTN: QAMAR [phone] [phone]
[2017-06-29] MEDS ORDERED: OMEP20TC12 PO (13:05)
--- NOTE | 2017-06-29 13:43 | NUR ---
PT C/O PAIN DURING INFUSION OF KCL. SLOWED DOWN TO 48ML/HR. WILL CONTINUE TO MONITOR PT.
--- NOTE | 2017-06-29 15:30 | NUR ---
DISCHARGE INSTRUCTIONS GIVEN TO PT. PT VERBALIZE UNDERSTANDING. REMOVE IV . CANNULA INTACT. NO BLEEDING NOTED. REMOVED ID BANDS. REMOVED TELE MONITOR. DENIES PAIN. PT WILL GET DRESSED. GATHER PERSONAL BELONGINGS. WILL LET US KNOW WHEN HE IS READY TO GO.
--- NOTE | 2017-06-29 15:55 | NUR ---
DIRECTOR SALES AND TRADE MARKETING WALKED PATIENT OUT TO THE LOBBY. PERSONAL BELONGINGS WITH THE PATIENT. PT IS IN STABLE CONDITION. REFUSED WHEELCHAIR.
== END 2017-06-29 15:55 | disposition home or self-care (01) | DRG 280 ==
LOC: MED 09:04 → MIC 11:17 → MTU 06-27 15:25
PROVIDERS: ADMIT Family Medicine; ATTEND Family Medicine
PROC: 06L38CZ Occlusion of Esophageal Vein with Extraluminal Device, Via Natural or Artificial Opening Endoscopic (ICD-10-PCS; principal; 2017-06-26 15:00)
DX: K70.30 Alcoholic cirrhosis of liver without ascites (principal); K70.10 Alcoholic hepatitis without ascites; N17.0 Acute kidney failure with tubular necrosis; E43 Unspecified severe protein-calorie malnutrition; I85.11 Secondary esophageal varices with bleeding; E72.20 Disorder of urea cycle metabolism, unspecified; D69.6 Thrombocytopenia, unspecified; K80.10 Calculus of gallbladder with chronic cholecystitis without obstruction; K72.90 Hepatic failure, unspecified without coma; D62 Acute posthemorrhagic anemia; R16.1 Splenomegaly, not elsewhere classified; E87.6 Hypokalemia; E78.5 Hyperlipidemia, unspecified; F10.10 Alcohol abuse, uncomplicated; E80.6 Other disorders of bilirubin metabolism; Y90.6 Blood alcohol level of 120-199 mg/100 ml; Z71.41 Alcohol abuse counseling and surveillance of alcoholic; Z68.30 Body mass index [BMI] 30.0-30.9, adult
CPT/HCPCS: 36415; 71010; 76700; 80048; 80053; 80305; 81001; 82140; 82150; 83036; 83690; 83735; 83880; 84100; 84439; 84443; 84484; 85025; 85610; 85730; 86704; 86706; 86708; 86709; 86803; 87081; 87086; 87340; 90658; 93005; 96374; 99291; A9153; C9113; G0482; J0696; J0780; J1200; J2001; J2250; J2270; J2354; J2405; J2765; J3010; J3411; J3475; J3480; J3490; J7030; J7060; J7510; Q0092

== ENCOUNTER 2020-02-06 13:54 | Emergency (ER) | payer OTHER ==
[~2020-02-06] VITALS: Ht 170.2 cm; Wt 80.3 kg
[~2020-02-06 13:54] MED LIST: CYAN-11 PO; FOLI1TAB90 PO; LACT10SO11 PO; LORA-476 PO; MULT-405 PO; OMEP20TC12 PO; PRED15SY37 PO; PROP20TA75 PO; SPIR50TA PO; THIA-34 PO
[2020-02-06 13:56] VITALS: BP 138/83
[2020-02-06] MEDS ORDERED: NACL 0.9% 1,000 ML IV SCH (14:06)
[2020-02-06] MEDS ORDERED: ONDANSETRON 4 MG/2 ML VIAL IVP ONE (14:10)
[2020-02-06] MEDS ORDERED: KETOROLAC 30 MG/ML VIAL IVP ONE (14:10)
[2020-02-06 14:32] LABS: BASOPHILS # (AUTO) 0.1 K/uL (0.00-0.22); BASOPHILS % (AUTO) 0.9 % (0.0-2.0); EOSINOPHILS # (AUTO) 0.1 K/uL (0-0.4); EOSINOPHILS % (AUTO) 1.8 % (0.0-4.0); HEMATOCRIT 35.1 % (36-52); HEMOGLOBIN 12.2 g/dL (12.0-18.0); LYMPHOCYTES % (AUTO) 13.3 % (20.5-51.1); MEAN CORPUSCULAR HEMOGLOBIN 34 pg (27-31); MEAN CORPUSCULAR HGB CONC 35 g/dL (33-37); MEAN CORPUSCULAR VOLUME 97.9 fL (80-94); MONOCYTES # (AUTO) 0.5 K/uL (0.8-1.0); MONOCYTES % (AUTO) 6.5 % (1.7-9.3); NEUTROPHILS # (AUTO) 5.6 K/uL (1.8-7.7); NEUTROPHILS % (AUTO) 77.5 % (42.2-75.2); PLATELET COUNT (AUTO) 90 K/uL (140-450); RED BLOOD CELL COUNT(AUTO) 3.58 MIL/uL (4.20-6.10); RED CELL DISTRIBUTION WIDTH 18.7 % (11.6-13.7); WHITE BLOOD COUNT (AUTO) 7.3 K/uL (4.8-10.8)
[2020-02-06 14:40] LABS: APPEARANCE,URINE CLEAR (CLEAR); BILIRUBIN,URINE 3+ (NEGATIVE); BLOOD, URINE NEGATIVE (NEGATIVE); COLOR,URINE YELLOW (YELLOW); LEUKOCYTE ESTERASE ,URINE TRACE (NEGATIVE); NITRITE, URINE NEGATIVE (NEGATIVE); UGLUCOSE TRACE (NEGATIVE)
[2020-02-06 14:56] LABS: ALBUMIN 2.3 g/dL (3.4-5.0); ANION GAP 13.6 (8-16); CARBON DIOXIDE 23.1 mmol/L (21-32); TOTAL BILIRUBIN 33.6 mg/dL (0.0-1.0)
[2020-02-06 14:57] LABS: POTASSIUM 2.7 mmol/L (3.5-5.1)
[2020-02-06] MEDS ORDERED: POTASSIUM CHLORIDE 10 MEQ TABER PO ONE (15:05)
[2020-02-06 16:05] LABS: RBC,URINE 0-5 /HPF (0-5)
[2020-02-06 16:06] LABS: COARSE GRANULAR CASTS,URINE 0-10 /LPF (None Seen)
[2020-02-06 16:11] VITALS: BP 132/80
== END 2020-02-06 16:12 | disposition home or self-care (01) ==
LOC: MED 13:54
DX: K74.60 Unspecified cirrhosis of liver (principal); E87.6 Hypokalemia; Z98.890 Other specified postprocedural states; Z79.899 Other long term (current) drug therapy
CPT/HCPCS: 36415; 76705; 80053; 81001; 83690; 85025; 87086; 96374; 96375; 99284; J1885; J2405; J7030; Q0092

== ENCOUNTER 2020-02-15 14:49 | Emergency (ER) | payer OTHER ==
[~2020-02-15] VITALS: Ht 170.2 cm; Wt 83.9 kg
[2020-02-15 14:56] VITALS: BP 139/53
--- NOTE | 2020-02-15 15:03 | NUR ---
PT AMBULATED TO ER BED 12
[2020-02-15] MEDS ORDERED: NACL 0.9% 1,000 ML IV SCH (15:06)
[2020-02-15] MEDS ORDERED: KETOROLAC 30 MG/ML VIAL IVP ONE (15:10)
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
--- NOTE | 2020-02-15 15:51 | NUR ---
TORADOL AND NACL BOLUS STARTED
[2020-02-15 15:53] LABS: BASOPHILS # (AUTO) 0.1 K/uL (0.00-0.22); BASOPHILS % (AUTO) 0.4 % (0.0-2.0); EOSINOPHILS # (AUTO) 0.1 K/uL (0-0.4); EOSINOPHILS % (AUTO) 1.2 % (0.0-4.0); HEMOGLOBIN 12.7 g/dL (12.0-18.0); LYMPHOCYTES # (AUTO) 0.9 K/uL (2.0-11.5); LYMPHOCYTES % (AUTO) 7.5 % (20.5-51.1); MEAN CORPUSCULAR HEMOGLOBIN 34 pg (27-31); MEAN CORPUSCULAR HGB CONC 34 g/dL (33-37); MEAN CORPUSCULAR VOLUME 99.8 fL (80-94); MONOCYTES # (AUTO) 0.8 K/uL (0.8-1.0); MONOCYTES % (AUTO) 6.1 % (1.7-9.3); NEUTROPHILS # (AUTO) 10.6 K/uL (1.8-7.7); NEUTROPHILS % (AUTO) 84.8 % (42.2-75.2); PLATELET COUNT (AUTO) 87 K/uL (140-450); RED BLOOD CELL COUNT(AUTO) 3.71 MIL/uL (4.20-6.10); RED CELL DISTRIBUTION WIDTH 19.8 % (11.6-13.7); WHITE BLOOD COUNT (AUTO) 12.5 K/uL (4.8-10.8)
--- NOTE | 2020-02-15 16:12 | NUR ---
NADR, PAIN 03/27
[2020-02-15] MEDS ORDERED: MORPHINE SULFATE 4 MG/ML SYR IVP ONE (16:15)
--- NOTE | 2020-02-15 16:24 | NUR ---
MORPHINE IVP ADMINISTERED
[2020-02-15] MEDS ORDERED: IBUP-2213 PO (16:35)
[2020-02-15] MEDS ORDERED: LACT10SO1 PO (16:36)
--- NOTE | 2020-02-15 16:37 | NUR ---
HOOK UP [id number] USED TO OBTAIN PTS HOME MED LIST
[2020-02-15 16:54] LABS: ALBUMIN 2.1 g/dL (3.4-5.0); CARBON DIOXIDE 24.3 mmol/L (21-32); CREATININE 1.5 mg/dL (0.6-1.3); TOTAL BILIRUBIN 32.6 mg/dL (0.0-1.0)
--- NOTE | 2020-02-15 17:27 | NUR ---
NADR, PAIN 12/26
--- NOTE | 2020-02-15 17:29 | NUR ---
PT RESTING IN BED ON PHONE, VS STABLE
--- NOTE | 2020-02-15 17:48 | NUR ---
CALLED LAB IN REGARDS TO MISSING CHEMISTRY VERBAL READ FOR SODIUM 138 AND POTASSIUM 2.[address] CORONA
--- NOTE | 2020-02-15 18:31 | NUR ---
ANNA TRANSLATER FAZAL USED FOR PTS CONSENT TO BE TRANSFERED TO [facility] Addendum: 02/15/20 at 1835 by [email or web address] FAZAL [id number]
--- NOTE | 2020-02-15 18:32 | NUR ---
PT WILL GO TO ROOM 2150 AT [facility]
[2020-02-15] MEDS ORDERED: POTASSIUM CHLORIDE 10 MEQ TABER PO ONE (18:40)
--- NOTE | 2020-02-15 18:44 | NUR ---
POTASSIUM PO ADMINISTERED, PTS TRANSLATED OVER THE PHONE
--- NOTE | 2020-02-15 18:53 | NUR ---
REPORT GIVEN TO A[facility] AT [facility]
[2020-02-15 18:58] VITALS: BP 124/80
--- NOTE | 2020-02-15 18:58 | NUR ---
Patient to be transferred to [facility] Is being transferred due to HIGHER LEVEL OF CARE. Receiving facility has accepting physician and available space. ER physician has signed transfer form. Patient or responsible republican has agreed to transfer and signed form. Patient belongings inventoried and will be sent with patient. Copy of nursing notes, lab reports, EKG, Physicians Orders and X-rays to be sent with patient. Report called to [facility] HERE FOR TRANSFER
[2020-02-15 19:01] LABS: ANION GAP 14.4 (8-16)
[2020-02-15 19:13] LABS: POTASSIUM 2.7 mmol/L (3.5-5.1)
== END 2020-02-15 18:58 | disposition short-term general hospital (02) ==
LOC: MED 14:49
DX: R19.00 Intra-abdominal and pelvic swelling, mass and lump, unspecified site (principal); K70.30 Alcoholic cirrhosis of liver without ascites; F10.10 Alcohol abuse, uncomplicated; E83.51 Hypocalcemia
CPT/HCPCS: 36415; 74176; 80053; 82140; 83690; 85025; 96374; 96375; 99285; J1885; J2270; J7030

== ENCOUNTER 2020-11-21 10:04 | Inpatient (IN) | payer MEDICAID, SELFPAY ==
[~2020-11-21] VITALS: Ht 170.2 cm; Wt 76.7 kg
[~2020-11-21 10:04] MED LIST changes: -CYAN-11 PO; -FOLI1TAB90 PO; +IBUP-2213 PO; +LACT-103 PO; -LACT10SO11 PO; -LORA-476 PO; -MULT-405 PO; -OMEP20TC12 PO; -PRED15SY37 PO; -PROP20TA75 PO; -SPIR50TA PO; -THIA-34 PO
--- NOTE | 2020-11-21 10:07 | NUR ---
Patient ambulated with steady gait to bed 3.
[2020-11-21 10:16] VITALS: BP 116/75
--- NOTE | 2020-11-21 10:19 | NUR ---
40 Y/O MALE BIB C/O HEMATEMESIS X3 TODAY WITH A SYNCOPAL EPISODE. PT STATES HE HAS N/V, CHILLS, BUT DENIES FEVER. PT STATES HE IS A RECOVERING ALCOHOLIC WITH LAST DRINK [id number] AGO. PRIOR TO THAT PT DRANK 12 CANS OF BEER A DAY. PMH: ESOPHAGEAL VARICES, CIRRHOSIS NKA
--- NOTE | 2020-11-21 10:24 | NUR ---
Felicitas hernandez in ED - 11/21/20 at [address] Lazo at [facility] for further evaluation.
--- NOTE | 2020-11-21 10:24 | NUR ---
Dr. Mchugh at pt bedside for further evaluation.
[2020-11-21] MEDS ORDERED: OCTREOTIDE ACETATE 100 MCG/ML VIAL IV SCH (10:35)
[2020-11-21] MEDS ORDERED: PANTOPRAZOLE 40 MG INJ VIAL IVP ONE (10:35)
[2020-11-21] MEDS ORDERED: cefTRIAXone 1,000 MG VIAL ONE (10:53)
[2020-11-21 10:59] LABS: BASOPHILS # (AUTO) 0.1 K/uL (0.00-0.22); EOSINOPHILS # (AUTO) 0.1 K/uL (0-0.4); EOSINOPHILS % (AUTO) 2.3 % (0.0-4.0); HEMATOCRIT 33.7 % (36-52); HEMOGLOBIN 11.4 g/dL (12.0-18.0); LYMPHOCYTES # (AUTO) 1.1 K/uL (2.0-11.5); LYMPHOCYTES % (AUTO) 17.9 % (20.5-51.1); MEAN CORPUSCULAR HEMOGLOBIN 33 pg (27-31); MEAN CORPUSCULAR HGB CONC 34 g/dL (33-37); MEAN CORPUSCULAR VOLUME 97.1 fL (80-94); MONOCYTES # (AUTO) 0.4 K/uL (0.8-1.0); MONOCYTES % (AUTO) 6.3 % (1.7-9.3); NEUTROPHILS # (AUTO) 4.5 K/uL (1.8-7.7); NEUTROPHILS % (AUTO) 72.5 % (42.2-75.2); PLATELET COUNT (AUTO) 49 K/uL (140-450); RED BLOOD CELL COUNT(AUTO) 3.47 MIL/uL (4.20-6.10); RED CELL DISTRIBUTION WIDTH 15.9 % (11.6-13.7); WHITE BLOOD COUNT (AUTO) 6.3 K/uL (4.8-10.8)
[2020-11-21] MEDS ORDERED: VITD400 PO (11:12)
[2020-11-21] MEDS ORDERED: FERR-212 PO (11:12)
[2020-11-21 11:18] LABS: ALBUMIN 2.8 g/dL (3.4-5.0); ANION GAP 12.5 (8-16); CARBON DIOXIDE 23.2 mmol/L (21-32); CREATININE 0.8 mg/dL (0.6-1.3); POTASSIUM 3.7 mmol/L (3.5-5.1); TOTAL BILIRUBIN 3.8 mg/dL (0.0-1.0)
--- NOTE | 2020-11-21 11:19 | NUR ---
Collected ROSEANNE SINCLAIR, walked to lab.
[2020-11-21] MEDS ORDERED: ACETAMINOPHEN 325 MG TAB PO PRN (13:50)
[2020-11-21] MEDS ORDERED: DOCUSATE SODIUM 100 MG GELCAP PO PRN (13:50)
[2020-11-21] MEDS ORDERED: HYDROcodone/APAP 5/325 MG 1 TAB TAB PO PRN (13:50)
[2020-11-21] MEDS ORDERED: POTASSIUM CHLORIDE 40 MEQ, LIDOCAINE MPF 1% 25 MG in NACL 0.9% 250 ML IV PRN (13:50)
[2020-11-21] MEDS ORDERED: MORPHINE SULFATE 2 MG/ML SYR IVP PRN (13:50)
[2020-11-21] MEDS ORDERED: ONDANSETRON 4 MG/2 ML VIAL IM/IVP PRN (13:50)
[2020-11-21] MEDS ORDERED: SODIUM PHOS / POTASSIUM PHOS 1 PKT PDR PO PRN (13:50)
[2020-11-21] MEDS ORDERED: MAG SULF 2000 MG/WATER PREMIX 50 ML IV PRN (13:50)
--- NOTE | 2020-11-21 13:57 | NUR ---
Pt taken to OR for procedure via gurney.
[2020-11-21] MEDS ORDERED: fentaNYL citrate 0.05 MG/ML VIAL ONE ×2 (14:04→14:56)
[2020-11-21] MEDS ORDERED: diphenhydrAMINE 50 MG/ML VIAL ONE (14:04)
[2020-11-21] MEDS ORDERED: MIDAZOLAM 2 MG/2 ML VIAL ONE (14:05)
[2020-11-21] MEDS ORDERED: MIDAZOLAM 5 MG/5 ML VIAL ONE ×2 (14:05→14:56)
--- NOTE | 2020-11-21 14:16 | NUR ---
Gave report to ESTEFANI Cam for pending admission to 112.
[2020-11-21 14:22] LABS: MAGNESIUM 1.8 mg/dL (1.8-2.4); PHOSPHORUS 3.8 mg/dL (2.5-4.9)
[2020-11-21 15:45] VITALS: BP_SYST 114; BP_SYST 95; BP_DIAS 56; BP_DIAS 75
--- NOTE | 2020-11-21 16:02 | NUR ---
DR KINGSTON CALLED TO INFORM HIM OF HYPOTENSIVE EPISODE WHICH RESULTED IN DRUM SANDER OFFBEARER IN PACU, AFTER 1L BOLUS BP RECOVERED TO 131/60, HR 110, OK TO HOLD OFF ON BLOOD TRANSFUSION NOW, ORDER RECEIVED FOR CBC, EKG. AND MONITOR.
[2020-11-21] MEDS: OCTREOTIDE ACETATE 1.25 MG in NACL 0.9% 250 ML IV SCH (16:16)
[2020-11-21 16:40] LABS: BASOPHILS % (AUTO) 0.3 % (0.0-2.0); EOSINOPHILS % (AUTO) 0.3 % (0.0-4.0); HEMATOCRIT 28.1 % (36-52); HEMOGLOBIN 9.2 g/dL (12.0-18.0); LYMPHOCYTES % (AUTO) 10.8 % (20.5-51.1); MEAN CORPUSCULAR HEMOGLOBIN 32 pg (27-31); MEAN CORPUSCULAR HGB CONC 33 g/dL (33-37); MEAN CORPUSCULAR VOLUME 98.8 fL (80-94); MONOCYTES # (AUTO) 0.4 K/uL (0.8-1.0); MONOCYTES % (AUTO) 4.2 % (1.7-9.3); NEUTROPHILS # (AUTO) 7.9 K/uL (1.8-7.7); NEUTROPHILS % (AUTO) 84.4 % (42.2-75.2); PLATELET COUNT (AUTO) 63 K/uL (140-450); RED BLOOD CELL COUNT(AUTO) 2.84 MIL/uL (4.20-6.10); RED CELL DISTRIBUTION WIDTH 16.1 % (11.6-13.7); WHITE BLOOD COUNT (AUTO) 9.3 K/uL (4.8-10.8)
[2020-11-21] MEDS: DEXT 5% / NACL 0.45% 1,000 ML IV SCH (16:50)
--- NOTE | 2020-11-21 16:58 | NUR ---
DR KINGSTON NOTIFIED OF REPEAT CBC RESULT, CURRENT STATUS AND VITALS, NO NEED FOR TRANSFUSION AT THIS TIME, OK FOR PATIENT TO GO TO TELE TO ADMIT.
--- NOTE | 2020-11-21 17:10 | NUR ---
RECEIVED REPORT FROM PACU NURSE FRANCINE. ADMITTING PATIENT, CC N/V W/ BLOOD, DARK STOOLS, SYNCOPAL EPISODE AND CHILLS; DX: UPPER GI BLEED; HX: ALCOHOLIC CIRRHOSIS, ESOPHOGEAL VARICES, BANDED 04/2020; RECOVERING ALCOHOLIC 9 MONTHS SOBER; PATIENT IS TELUGU SPEAKING, AOx4 ON MODIFIED CODE, NO INTUBATION;. PATIENT IS NPO, RUNNING D5 1/2 NS @ 60 ML, IV SITE LAC 18G AND RAC 20G. CURRENTLY RUNNING SANDOSTATIN @ 5ML. PATIENT V/S: PULSE 105; BP 114/75; O2 100% 6L NC. COVID YAHIR NEGATIVE. PENDING PATIENT TRANSFER TO UNIT.
--- NOTE | 2020-11-21 17:49 | NUR ---
PATIENT ARRIVED ON UNIT. PATIENT UNDERWENT EGD W/ 4 VARICEAL BANDS. PATIENT AOx4, PREVIOUS EMESIS IN PACU X 3. OBTAINED V/S, PLACED PATIENT ON TELE MONITOR, ORIENTED PATIENT TO ROOM. PATIENT RESPIRATIONS EVEN/UNLABORED. SHOW NO SIGNS OF DISTRESS. ABDOMEN SOFT, FLAT NONTENDER. SKIN INTACT, PATIENT DENIES PAIN. SAFETY MEASURES IN PLACE. WILL CONTINUE TO MONITOR.
[2020-11-21] MEDS ORDERED: MIDAZOLAM 2 MG/2 ML VIAL IVP SCH (18:55)
[2020-11-21] MEDS ORDERED: fentaNYL citrate 0.05 MG/ML VIAL IVP SCH (18:55)
[2020-11-21] MEDS ORDERED: diphenhydrAMINE 50 MG/ML VIAL IVP SCH (18:55)
[2020-11-21] MEDS ORDERED: EPINEPHrine PFS 0.1 MG/ML SYR IVP ONE ×2 (18:59→19:35)
[2020-11-21] MEDS ORDERED: EPINEPHrine 1:1000 - 1 MG/ML AMP MC ONE (19:40)
[2020-11-21] MEDS ORDERED: EPINEPHrine 1:1000 - 1 MG/ML AMP MC SCH (19:54)
[2020-11-21 20:00] VITALS: BP 96/61
[2020-11-21] MEDS: LACTATED RINGERS 1,000 ML IV SCH ×4 (20:15→22:57)
[2020-11-21] MEDS: NACL 0.9% 1,000 ML IV SCH ×4 (20:20→22:58)
--- NOTE | 2020-11-21 20:29 | NUR ---
Assumed care. Pt in sleeping, but easy to arouse. Introduced self. He is no acute distress. Denies pain. has called. Pt is currently talking to . He claims to be thirsty, but he is NPO. Will review the orders, will continue to monitor.
[2020-11-21] MEDS: PANTOPRAZOLE 40 MG TABEC PO SCH (21:00)
[2020-11-22] VITALS (9 sets, daily range): BP systolic 105–153; BP diastolic 58–84
--- NOTE | 2020-11-22 00:57 | NUR ---
In no acute distress. Sleeping , easy to arouse. IVF infusing. tolerating well. Uses urinal. Will continue to monitor.
--- NOTE | 2020-11-22 04:13 | NUR ---
In no acute distress. Denies pain. Has ambulated to the restroom and moved his bowels. We will continue to monitor.
[2020-11-22] MEDS: DEXT 5% / NACL 0.45% 1,000 ML IV SCH (06:30)
--- NOTE | 2020-11-22 07:15 | NUR ---
Remains a/o x 4. He is ambulatory with a steady gait. Remains NPO until MD changes the orders. Uses the urinal. For bowel movements he ambulates to the BR. He had a 1 BM last night. He has 2 IV lines and they are both patent. He is receiving Ocreotide in one, and D5 1/2 NS in the other. Denies pain, and in no acute distress. Will endorse to AM RN.
--- NOTE | 2020-11-22 07:30 | NUR ---
RECEIVED BEDSIDE REPORT FROM NIGHTSHIFT NURSE FOR CONTINUITY OF CARE.
[2020-11-22 07:35] LABS: BASOPHILS % (AUTO) 0.1 % (0.0-2.0); EOSINOPHILS # (AUTO) 0.1 K/uL (0-0.4); EOSINOPHILS % (AUTO) 0.9 % (0.0-4.0); HEMATOCRIT 23.4 % (36-52); LYMPHOCYTES # (AUTO) 1.7 K/uL (2.0-11.5); LYMPHOCYTES % (AUTO) 19.9 % (20.5-51.1); MEAN CORPUSCULAR HEMOGLOBIN 33 pg (27-31); MEAN CORPUSCULAR HGB CONC 34 g/dL (33-37); MEAN CORPUSCULAR VOLUME 96.5 fL (80-94); MONOCYTES # (AUTO) 0.7 K/uL (0.8-1.0); MONOCYTES % (AUTO) 8.4 % (1.7-9.3); NEUTROPHILS % (AUTO) 70.7 % (42.2-75.2); PLATELET COUNT (AUTO) 46 K/uL (140-450); RED BLOOD CELL COUNT(AUTO) 2.43 MIL/uL (4.20-6.10); RED CELL DISTRIBUTION WIDTH 16.2 % (11.6-13.7); WHITE BLOOD COUNT (AUTO) 8.5 K/uL (4.8-10.8)
[2020-11-22 07:48] LABS: ANION GAP 15.6 (8-16); CARBON DIOXIDE 20.5 mmol/L (21-32); POTASSIUM 4.1 mmol/L (3.5-5.1)
[2020-11-22 08:06] LABS: FOLIC ACID 8.2 ng/mL (>3.0)
[2020-11-22] MEDS: PANTOPRAZOLE 40 MG TABEC PO SCH (08:50)
--- NOTE | 2020-11-22 08:52 | NUR ---
ADMINISTERED PRESCRIBED MEDS PER MD ORDER. PATIENT TOLERATED WELL. MEDICATION EDUCATION PROVIDED. REINFORCEMENT NEEDED DUE TO LANGUAGE BARRIER. SAFETY MEASURES IN PLACE. WILL CONTINUE TO MONITOR.
[2020-11-22] MEDS ORDERED: LACTULOSE 20 GM/30 ML UDC PO SCH ×2 (09:59→21:00)
[2020-11-22] MEDS: NACL 0.45% 1,000 ML IV SCH (10:53)
--- NOTE | 2020-11-22 10:54 | NUR ---
ADMINISTERED PRESCRIBED MEDS PER MD ORDER. PATIENT TOLERATED WELL. PATIENT STATED HAS USED BATHROOM W/ BM 3 TIMES THIS MORNING AND HAS SOME REDNESS TO IT. ADVSD PATIENT TO CALL NURSE NEXT TIME HE USES BATHROOM TO ASSESS. PATIENT DENIES PAIN, NO STRAINING DURING BM, NO DIARRHEA. SAFETY MEASURES IN PLACE. WILL CONTINUE TO MONITOR.
--- NOTE | 2020-11-22 13:00 | NUR ---
PATIENT FOUND SITTING ON FLOOR W/ BLOOD POOLED UNDERNEATH HIM. PATIENT ALERT, ABLE TO EXPLAIN EPISODE. STATED HE WAS WALKING TO THE BATHROOM WHEN HE FELT DIZZY AND SAT ONTO THE FLOOR. PATIENT THEN BEGAN TO FEEL WEAK AND STARTED TO FALL BACK. PATIENT WAS ASSISTED INTO LAYING POSITION, STATED HE FELT DIZZY AND VISION WAS BLURRED. PULSE PALPABLE, PATIENT RESPIRATIONS WERE EVEN AND UNLABORED. CALLED RAPID RESPONSE. PATIENT BP CONSISTENTLY DROPPED. PAGED AND RECEIVED MAINTENANCE ORDERS, IV FLUID BOLUS, CBC BLOOD PANEL, 2 UNITS PRBC.
[2020-11-22] MEDS ORDERED: NACL 0.9% 1,000 ML IV ONE (13:10)
[2020-11-22 13:18] LABS: BASOPHILS % (AUTO) 0.3 % (0.0-2.0); EOSINOPHILS # (AUTO) 0.3 K/uL (0-0.4); EOSINOPHILS % (AUTO) 2.5 % (0.0-4.0); HEMATOCRIT 21.2 % (36-52); LYMPHOCYTES # (AUTO) 4.3 K/uL (2.0-11.5); MEAN CORPUSCULAR HEMOGLOBIN 33 pg (27-31); MEAN CORPUSCULAR HGB CONC 33 g/dL (33-37); MEAN CORPUSCULAR VOLUME 99.7 fL (80-94); MONOCYTES # (AUTO) 0.6 K/uL (0.8-1.0); MONOCYTES % (AUTO) 4.5 % (1.7-9.3); NEUTROPHILS # (AUTO) 7.4 K/uL (1.8-7.7); NEUTROPHILS % (AUTO) 58.7 % (42.2-75.2); PLATELET COUNT (AUTO) 81 K/uL (140-450); RED BLOOD CELL COUNT(AUTO) 2.12 MIL/uL (4.20-6.10); RED CELL DISTRIBUTION WIDTH 17.2 % (11.6-13.7); WHITE BLOOD COUNT (AUTO) 12.7 K/uL (4.8-10.8)
[2020-11-22 13:26] LABS: HEMOGLOBIN 6.9 g/dL (12.0-18.0)
[2020-11-22] MEDS ORDERED: OCTREOTIDE ACETATE 100 MCG/ML VIAL IV SCH (13:30)
--- NOTE | 2020-11-22 15:10 | NUR ---
PATIENT RECEIVING 1 OF 2 UNITS PRBC, TOLERATING INFUSION WELL. VITALS 15 MIN AFTER INFUSION TEMP 97.7, PULSE 109, RESP 18, BP 117/66. PATIENT AOx4, STATES FEELING BETTER. EDUCATED PATIENT ON BLOOD TRANSFUSION. PATIENT VERBALIZED UNDERSTANDING. SAFETY MEASURES IN PLACE. WILL CONTINUE TO MONITOR.
[2020-11-22] MEDS: OCTREOTIDE ACETATE 1.25 MG in NACL 0.9% 250 ML IV SCH (15:30)
[2020-11-22 16:32] LABS: PROTHROMBIN TIME 17.4 secs (10.8-13.4)
[2020-11-22] MEDS: LACTULOSE 20 GM/30 ML UDC PO SCH (17:31)
--- NOTE | 2020-11-22 17:41 | NUR ---
ADMINISTERED PRESCRIBED MEDS PER MD ORDER. PATIENT TOLERATED WELL. MEDICATION EDUCATION PROVIDED. PATIENT VERBALIZED UNDERSTANDING. PATIENT 1 PRBC INFUSING AT 100 ML/HR. NO SIGNS OR SYMPTOMS OF DISTRESS NOTED. PATIENT SITTING UPRIGHT IN BED WATCHING TV. SAFETY MEASURES IN PLACE. WILL CONTINUE TO MONITOR.
--- NOTE | 2020-11-22 18:58 | NUR ---
PRBC TRANSFUSION IS COMPLETE. PATIENT SHOWED NO ADVERSE REACTIONS. PATIENT IS STABLE AND WATCHING TV. SAFETY MEASURES IN PLACE.
--- NOTE | 2020-11-22 19:17 | NUR ---
BEDSIDE ENDORSEMENT PROVIDED TO NIGHTSHIFT NURSE FOR CONTINUITY OF CARE.
--- NOTE | 2020-11-22 19:30 | NUR ---
RECEIVED PATIENT WITHOUT ICU MONITOR, PUT PATIENT ON BEDSIDE MONITOR, AAOX4 MALAY SPEAKING ONLY , NO DISTRESS NO C/O PAIN AT THIS TIME, SINUS TACHY WITH THE RATE OF 118 ON THE MONITOR, ON OCTREOTIDE DRIP AT 8 ML/HR, 1/2 NS AT 40 ML/HR, S/P PRBC 1 UNIT TRANSFUSION , SECOND UNIT OF PRBC NOT AVAILABLE PER REPORT, WAITING FOR THE CALL FROM BLOOD BANK. IV SITE AT LEFT ARM INTACT, WILL CONTINUE TO MONITOR.
--- NOTE | 2020-11-22 20:05 | NUR ---
ASSISTED PATIENT TO USE BEDPAN, LOOSE BLOODY STOOL X1 , NO DISTRESS , NO C/O PAIN AT THIS TIME. PUT PATIENT ON MONITOR.
[2020-11-22] MEDS: PANTOPRAZOLE 40 MG INJ VIAL IVP SCH (21:43)
[2020-11-23] VITALS (29 sets, daily range): BP systolic 47–137; BP diastolic 29–69
[2020-11-23] MEDS: NOREPINEPHRINE 4 MG in DEXTROSE 5% 250 ML IV PRN ×4 (00:20→19:22)
[2020-11-23] MEDS ORDERED: NOREPINEPHRINE 4 MG/4 ML VIAL IV ONE ×2 (00:23→05:32)
--- NOTE | 2020-11-23 00:30 | NUR ---
AT 0000, BP 62/45 HR 148 PATIENT IS LETHARGIC BUT AROUSABLE, PAGED AND SPOKE TO DR HANSEN OVER THE PHONE, START LEVOPHED DRIP TO KEEP SBP >90, ALSO GIVING NS 1 LITER BOLUS ,START SECOND UNIT OF PRBC . WILL CONTINUE TO MONITOR.
--- NOTE | 2020-11-23 00:45 | NUR ---
CALLED ; ANCELMO, NOTIFIED ABOUT PT CONDITION, INCREASED WORK OF BREATHING, ALOC, CLARIFIED CODE STATUS. ANCELMO, TO DISCUSS WITH FAMILY @ THIS TIME. AWAITING CALL BACK. WILL CONTINUE TO OBSERVE.
--- NOTE | 2020-11-23 01:11 | NUR ---
ANCELMO, CALLED BACK, SPOKE TO PT @ BEDSIDE. WISHING TO KEEP HIM MODIFIED CODE @ THIS TIME, NO INTUBATION PER AND PT. NO NEW ORDERS. WILL CONTINUE TO MONITOR, PRIMARY RN MADE AWARE.
[2020-11-23] MEDS: NACL 0.9% 1,000 ML IV SCH ×4 (01:27→03:58)
--- NOTE | 2020-11-23 03:00 | NUR ---
2ND UNIT OF PRBC COMPLETED AND NO REACTION NOTED. HR STILL HIGH 140'S , PAGED DR HANSEN AND TEXT TO HIS CELL PHONE.
--- NOTE | 2020-11-23 03:53 | NUR ---
DR HANSEN TEXT BACK : PATIENT NEEDS A BLOOD TRANSFUSION FOR THE HR, WILL GIVE ONE MORE BLOOD TRANSFUSION.
[2020-11-23] MEDS: OCTREOTIDE ACETATE 1.25 MG in NACL 0.9% 250 ML IV SCH (05:34)
--- NOTE | 2020-11-23 06:58 | NUR ---
LARGE AMOUNT OF BLOODY LOOSE STOOL X1 , PATIENT IS AWAKE , ALERT X4, NO DISTRESS , NO C/O PAIN AT THIS TIME, 3RD UNIT OF PRBC COMPLETED , NO REACTION NOTED.
--- NOTE | 2020-11-23 07:10 | NUR ---
REPORT RECEIVED, AWAKE,ALERT ORIENTED X4 ,BREATHING SPONTANEOUSLY ,NOT IN DISTRESS,SATURATING WELL, ON LEVOPHED DRIP FOR KEEP SBP ABOVE 90, ON OCTREOTIDE DRIP AT 8 MLS/HR. VSS, CONTINUE TO MONITOR.
[2020-11-23 08:30] LABS: HEMATOCRIT 30.1 % (36-52); HEMOGLOBIN 9.8 g/dL (12.0-18.0); MEAN CORPUSCULAR HEMOGLOBIN 32 pg (27-31); MEAN CORPUSCULAR HGB CONC 33 g/dL (33-37); MEAN CORPUSCULAR VOLUME 97.4 fL (80-94); PLATELET COUNT (AUTO) 96 K/uL (140-450); RED BLOOD CELL COUNT(AUTO) 3.09 MIL/uL (4.20-6.10); RED CELL DISTRIBUTION WIDTH 16.8 % (11.6-13.7)
--- NOTE | 2020-11-23 08:30 | NUR ---
PATIENT HAS BEEN SCREENED AND CATEGORIZED MODERATE NUTRITION RISK. PATIENT WILL BE SEEN WITHIN 3-5 DAYS OF ADMISSION. 11/23/20 11/25/[address]
[2020-11-23 08:39] LABS: ANION GAP 18.2 (8-16); CARBON DIOXIDE 15.8 mmol/L (21-32); CREATININE 2.6 mg/dL (0.6-1.3)
[2020-11-23] MEDS: PANTOPRAZOLE 40 MG INJ VIAL IVP SCH ×2 (08:54→20:13)
[2020-11-23] MEDS: LACTULOSE 20 GM/30 ML UDC PO SCH ×3 (08:55→18:01)
[2020-11-23] MEDS: PROPRANOLOL 20 MG TAB PO SCH ×3 (08:55→18:00)
[2020-11-23 09:22] LABS: WHITE BLOOD COUNT (AUTO) 40.1 K/uL (4.8-10.8)
[2020-11-23 09:23] LABS: EOSINOPHILS % (MANUAL) 2 % (0-4); LYMPHOCYTES % (MANUAL) 3 % (20-46); MONOCYTES % (MANUAL) 8 % (5-12)
--- NOTE | 2020-11-23 10:00 | NUR ---
PT STABLE FOR NOW, VSS.
[2020-11-23] MEDS: NACL 0.45% 1,000 ML IV SCH (12:31)
--- NOTE | 2020-11-23 13:15 | NUR ---
DR GUZMANALLED ,ALL PERTINENT DATA RELAYED TO HIM,HE ORDERED TO CANCELTHE HIDA SCAN AND INSTEAD SCHEDULE PT FOR EGD .TOMORROW BETWEEN 9-1000AM . OR [employer] MAT INSPECTOR MATTY INFORMED OF THE SCHEDULE..XRAY NOTIFIED OF THE CANCELLATION OF HIDA SCAN. LIME TRIMMER INFORMED.
[2020-11-23] MEDS: PIPERACILLIN/TAZOBACTAM 2.25 GM in DEXTROSE 5% 50 ML IV SCH ×2 (13:18→20:14)
--- NOTE | 2020-11-23 15:23 | NUR ---
DR SILVERIO HERE, SEEN PT,NOTED ALL PARAMETERS,WITH ORDERS.,CONTINUE PLAN OF CARE.
[2020-11-23 16:13] LABS: BASOPHILS # (AUTO) 0.4 K/uL (0.00-0.22); BASOPHILS % (AUTO) 1.1 % (0.0-2.0); EOSINOPHILS # (AUTO) 0.1 K/uL (0-0.4); EOSINOPHILS % (AUTO) 0.2 % (0.0-4.0); HEMATOCRIT 30.6 % (36-52); HEMOGLOBIN 9.8 g/dL (12.0-18.0); LYMPHOCYTES # (AUTO) 5.5 K/uL (2.0-11.5); MEAN CORPUSCULAR HEMOGLOBIN 32 pg (27-31); MEAN CORPUSCULAR HGB CONC 32 g/dL (33-37); MEAN CORPUSCULAR VOLUME 98.4 fL (80-94); MONOCYTES # (AUTO) 1.7 K/uL (0.8-1.0); MONOCYTES % (AUTO) 4.4 % (1.7-9.3); NEUTROPHILS # (AUTO) 31.5 K/uL (1.8-7.7); NEUTROPHILS % (AUTO) 80.3 % (42.2-75.2); PLATELET COUNT (AUTO) 111 K/uL (140-450); RED BLOOD CELL COUNT(AUTO) 3.11 MIL/uL (4.20-6.10); RED CELL DISTRIBUTION WIDTH 17.2 % (11.6-13.7)
[2020-11-23 16:45] LABS: APPEARANCE,URINE SL CLOUDY (CLEAR); BILIRUBIN,URINE NEGATIVE (NEGATIVE); BLOOD, URINE 2+ (NEGATIVE); COLOR,URINE YELLOW (YELLOW); LEUKOCYTE ESTERASE ,URINE NEGATIVE (NEGATIVE); NITRITE, URINE NEGATIVE (NEGATIVE); UGLUCOSE NEGATIVE (NEGATIVE)
[2020-11-23 16:54] LABS: WHITE BLOOD COUNT (AUTO) 39.3 K/uL (4.8-10.8)
[2020-11-23 17:48] LABS: RBC,URINE 11-20 (MOD) /HPF (0-5); WBC,URINE 0-5 /HPF (0-5)
[2020-11-23] MEDS ORDERED: ALBUMIN HUMAN 5 % 250 ML IV SCH (18:00)
--- NOTE | 2020-11-23 18:32 | NUR ---
DR HASSAN CALLED BY PHONE,NOTED TO HIM THE BLOOD WORK RESULTS , ALLPERTINENT DATA RELAYED ND SAID HE WILL COME TOSEE PT LATER.
[2020-11-23] MEDS: ALBUMIN HUMAN 5 % 250 ML IV SCH ×2 (18:36→23:40)
[2020-11-23] MEDS: MIDODRINE 5 MG TAB PO SCH (18:36)
--- NOTE | 2020-11-23 19:10 | NUR ---
REPORT RECEIVED FROM DAY SHIFT NURSE. PT IN BED, AWAKE,ALERT ORIENTED X4. RESPIRATIONS EVEN AND UNLABORED TO O2 2LPM/NC, PT NOT IN DISTRESS. ABDOMEN SOFT AND NON-TENDER, ACTIVE BOWEL SOUNDS NOTED. SKIN IS WARM, DRY, AND INTACT. PT WITH IV ACCESS ON RIGHT AC G20 AND LEFT AC G18 PATENT AND INTACT, IVF INFUSING WELL. PT CURRENTLY ON LEVOPHED DRIP 10MCG/MIN AND OCTREOTIDE DRIP AT 8 MLS/HR. PT DENIES ANY PAIN OR DISCOMFORT AT THIS TIME, NO REQUESTS MADE. VSS AT THIS TIME, WILL CONTINUE TO MONITOR.
--- NOTE | 2020-11-23 20:11 | NUR ---
1914 FOUND PATIENT ON 5LNC AT 100% SATS. LOWERED FIO2 TO 2LNC. WILL MONITOR PT
--- NOTE | 2020-11-23 20:15 | NUR ---
VS STABLE. SCHEDULED MEDS GIVEN ORDERED. O2 IN PLACE 2LPM/NC PT TOLERATING WELL. IVF AND DRIP INFUSING WELL. PATEL CATH DRAINING WELL. DENIES ANY PAIN OR DISCOMFORT. NO REQUESTS MADE AT THIS TIME. SAFETY MEASURES IN PLACE, CALL LIGHT WITHIN REACH, WILL CONTINUE TO MONITOR.
--- NOTE | 2020-11-23 21:45 | NUR ---
PT WITH EPISODE OF BLOODY STOOL 150ML. PT NOT IN DISTRESS. DENIES ANY PAIN OR DISCOMFORT. VS STABLE. WILL CONTINUE TO MONITOR.
--- NOTE | 2020-11-23 22:07 | NUR ---
DR. LALA AT BEDSIDE. CLARIFIED ABOUT THE HIDA SCAN HE ORDERED TODAY BECAUSE PREVIOUS ORDER WAS CANCELLED AND PATIENT WILL BE HAVING EGD TOMORROW 11/24/20. SAID PT CAN HAVE HIDA SCAN THE FOLLOWING DAY AFTER EGD 11/25/20. ORDERS PLACED INSTRUCTED.
[2020-11-23 22:52] LABS: CREATININE,URINE RANDOM 92 mg/dL (30-125); URINE SODIUM, RANDOM 18 mmol/l (40-220)
[2020-11-24] VITALS (24 sets, daily range): BP systolic 85–138; BP diastolic 24–83
[2020-11-24] MEDS: NOREPINEPHRINE 4 MG in DEXTROSE 5% 250 ML IV PRN ×4 (00:11→19:03)
--- NOTE | 2020-11-24 00:19 | NUR ---
VS STABLE. PT IN BED RESTING AND WATCHING TV. O2 IN PLACE. DENIES ANY PAIN OR DISCOMFORT AT THIS TIME. NO REQUESTS MADE AT THIS TIME. PT KEPT COMFORTABLE. DRIP SETTINGS UNCHANGED. WILL CONTINUE TO MONITOR.
--- NOTE | 2020-11-24 01:55 | NUR ---
PT ASSISTED TO COMMODE. PT WITH ANOTHER BLOODY STOOL AMOUNTING TO 50ML. PT NOT IN DISTRESS. VS STABLE. DENIES ANY PAIN OR DISCOMFORT AT THIS TIME. PT KEPT ON NPO. IVF INFUSING WELL. WILL CONTINUE TO MONITOR.
--- NOTE | 2020-11-24 04:14 | NUR ---
PT ASLEEP. VS STABLE. NO S/SX OF DISTRESS NOTED. VISIBLE CHEST RISE AND FALL NOTED. PT KEPT SAFE AND COMFORTABLE. WILL CONTINUE TO MONITOR.
[2020-11-24] MEDS: PIPERACILLIN/TAZOBACTAM 2.25 GM in DEXTROSE 5% 50 ML IV SCH ×3 (04:40→20:52)
[2020-11-24 05:33] LABS: BASOPHILS % (AUTO) 0.2 % (0.0-2.0); EOSINOPHILS # (AUTO) 0.2 K/uL (0-0.4); EOSINOPHILS % (AUTO) 1.1 % (0.0-4.0); HEMATOCRIT 23.5 % (36-52); HEMOGLOBIN 7.7 g/dL (12.0-18.0); LYMPHOCYTES # (AUTO) 3.8 K/uL (2.0-11.5); LYMPHOCYTES % (AUTO) 18.1 % (20.5-51.1); MEAN CORPUSCULAR HEMOGLOBIN 32 pg (27-31); MEAN CORPUSCULAR HGB CONC 33 g/dL (33-37); MEAN CORPUSCULAR VOLUME 96.7 fL (80-94); MONOCYTES # (AUTO) 1.6 K/uL (0.8-1.0); MONOCYTES % (AUTO) 7.5 % (1.7-9.3); NEUTROPHILS # (AUTO) 15.2 K/uL (1.8-7.7); NEUTROPHILS % (AUTO) 73.1 % (42.2-75.2); PLATELET COUNT (AUTO) 74 K/uL (140-450); RED BLOOD CELL COUNT(AUTO) 2.43 MIL/uL (4.20-6.10); RED CELL DISTRIBUTION WIDTH 17.1 % (11.6-13.7); WHITE BLOOD COUNT (AUTO) 20.7 K/uL (4.8-10.8)
[2020-11-24] MEDS: ALBUMIN HUMAN 5 % 250 ML IV SCH ×3 (06:04→17:11)
[2020-11-24] MEDS: MIDODRINE 5 MG TAB PO SCH ×3 (06:05→18:03)
--- NOTE | 2020-11-24 06:05 | NUR ---
SCHEDULED ALBUMIN GIVEN ORDERED. SCHEDULED MIDODRINE HELD DUE TO PT ON NPO.
[2020-11-24 06:44] LABS: ANION GAP 17.5 (8-16); CARBON DIOXIDE 16.1 mmol/L (21-32); CREATININE 3.4 mg/dL (0.6-1.3); POTASSIUM 4.6 mmol/L (3.5-5.1)
--- NOTE | 2020-11-24 07:17 | NUR ---
ENDORSED TO DAY SHIFT NURSE FOR CONTINUITY OF CARE.
--- NOTE | 2020-11-24 07:59 | NUR ---
RECEIVED PT ALERT AND FOLLOWS COMMAND. ON 2L O2 VIA NC. NO SOB NOTED. LOW BP NOTED. TITRATED LEVOPHED PER PROTOCOL. AFEBRILE. PERIPHERAL IV'S R AC 20G AND LEFT AC 18G INTACT AND PATENT. AFEBRILE. PALPABLE PULSES TO BILATERAL UPPER/LOWER EXTREMITIES. DENIES ABDOMINAL PAIN. NO ACTIVE BLEEDING NOTED. PATEL CATH IN PLACE DRAINING CLEAR YELLOW URINE. TURNS SELF. NEEDS ATTENDED. POC DISCUSSED AND REVIEWED FROM BEREAVEMENT PROGRAM COORDINATOR RN. WILL CONTINUE TO MONITOR PATIENT.
[2020-11-24] MEDS ORDERED: MIDAZOLAM 5 MG/5 ML VIAL ONE (08:13)
[2020-11-24] MEDS ORDERED: diphenhydrAMINE 50 MG/ML VIAL ONE (08:13)
[2020-11-24] MEDS ORDERED: fentaNYL citrate 0.05 MG/ML VIAL ONE (08:13)
[2020-11-24] MEDS: LACTULOSE 20 GM/30 ML UDC PO SCH ×3 (08:16→17:11)
[2020-11-24] MEDS: PANTOPRAZOLE 40 MG INJ VIAL IVP SCH ×2 (08:17→20:52)
[2020-11-24] MEDS: PROPRANOLOL 20 MG TAB PO SCH ×3 (08:26→17:00)
--- NOTE | 2020-11-24 08:28 | NUR ---
PT OFF FOR PROCEDURE IN OR. PT IS ACCOMPANIED BY OR NURSES. NO S/S OF DISTRESS.
--- NOTE | 2020-11-24 08:57 | NUR ---
PT IS BACK FROM OR. PT IS SEDATED. VS GUARDED. HOB KEPT ELEVATED.
[2020-11-24] MEDS ORDERED: diphenhydrAMINE 50 MG/ML VIAL IVP ONE (09:10)
[2020-11-24] MEDS ORDERED: fentaNYL citrate 0.05 MG/ML VIAL IVP ONE (09:10)
[2020-11-24] MEDS ORDERED: MIDAZOLAM 2 MG/2 ML VIAL IVP ONE (09:10)
--- NOTE | 2020-11-24 09:50 | NUR ---
SEEN AND EXAMINED BY DR. SOTELO. MADE AWARE PT'S ELEVATED BUN /CREATININE. SPOKE TO PT ABOUT POSSIBLE DIALYSIS. PT DEMONSTRATED UNDERSTANDING.
--- NOTE | 2020-11-24 10:09 | NUR ---
SEEN AND EXAMINED BY DR. HANSEN. MADE AWARE EGD WAS DONE. MD PLAN TO RESUME REGULAR FEEDING. WILL FOLLOW UP.
[2020-11-24] MEDS: NACL 0.45% 1,000 ML IV SCH (11:00)
--- NOTE | 2020-11-24 12:02 | NUR ---
SOCIAL WORK NOTE: MARCELLE WAS UNABLE TO MEET PATIENT AT BEDSIDE. MARCELLE CONTACTED PATIENT'S ANCELMO FRANCIS [phone] TO COMPLETE ASSESSMENT. SW LEFT VM AND WILL FOLLOW UP. Addendum: 11/25/20 at 1223 by Storm Webber SS Patient's Orientation Unable To Assess Information Provided By ANCELMO FRANCIS - Comments SW WAS UNABLE TO MEET PATIENT AT BEDSIDE. MARCELLE COMPLETED ASSESSMENT WITH PATIENT'S . Concrete Pump Operator, Realtionship and Phone Number ANCELMO ÁLVAREZ [phone] [facility] Power of Printing Film Stripper No Does Patient Have a POLST No Identifying Problems No Social Work Triggers Is A Social Work Consult Needed No Mandate Report Filed No Explanation Of Identifying Problems PATIENT IS A 40-YEAR-OLD MALE ADMITTED FOR UPPER GI BLEED. PATIENT HAS PMHX OF RIGHT INGUINAL HERNIA AND GALLSTONES. PATIENT'S REPORTED NO HX OF MENTAL HEALTH OR SUBSTANCE ABUSE. Admitted From Home Pre-Admission Level Of Functioning Status Independent/Ambulatory Prior Resources/Services Used In Last 12 Months No Prior Resources Used Prior DME No Prior DME Used Dialysis Comments N/A Living Situation Lives With Family House Patient Had Caregiver No Home Support No Caregiver Issues Financial Issues No Known Financial Issue Referral To The Financial Counselor Needed No Factors/Needs No D/C Needs Identified Pt/Rep Participated In Discharge Plan Yes Patient/Family Agress With Discharge Plan Yes Discharge Plan Comments TENTATIVE DISCHARGE PLAN IS FOR PATIENT TO RETURN HOME. DC Plan Status Initiated
--- NOTE | 2020-11-24 14:24 | NUR ---
DR. HANSEN APPROVED TO ADVANCE TO CLEAR LIQUID DIET.
--- NOTE | 2020-11-24 14:47 | NUR ---
11/24/20 RD INITIAL ASSESSMENT COMPLETED PLEASE REFER TO NUTRITION ASSESSMENT UNDER CARE ACTIVITY FOR ESTIMATED NUTRITIONAL NEEDS. 1. CONTINUE CLEAR LIQUID DIET AND ENSURE CLEAR TID 2. ADVANCE TO SOFT/BLAND DIET WITH ENSURE TID 3. RD WILL FOLLOW UP WITH CIRRHOSIS NUTRITION EDUCATION 4. RD TO FOLLOW-UP 2-3 DAYS, HIGH RISK DIONICIO CARMEN, RD
--- NOTE | 2020-11-24 15:07 | NUR ---
SEEN AND EXAMINED BY DR. SILVERIO. MADE AWARE PT'S ELEVATED BUN/ CREA. NO NEW ORDERS. LOW HGB WAS NOTIFIED. MD ORDERED TO CONTINUE TO GIVE ALBUMIN. PT IS RESTING AND CALM. NO S/S OF DISTRESS.
[2020-11-24] MEDS: OCTREOTIDE ACETATE 1.25 MG in NACL 0.9% 250 ML IV SCH (16:30)
--- NOTE | 2020-11-24 18:24 | NUR ---
PT IS RESTING AND CALM. TOLERATED WELL WITH CLEAR LIQUID DIET. NO ACTIVE GI BLEEDING NOTED. KEPT CONTINUOUS LEVOPHED DRIP TO 12 MCG/KG/H. BP WITHIN NORMAL LIMIT. PT DENIES DISCOMFORT OR PAIN.
--- NOTE | 2020-11-24 19:04 | NUR ---
PT HAD BLOODY STOOL X1, ESTIMATED VOLUME 100 ML.
--- NOTE | 2020-11-24 19:34 | NUR ---
ENDORSED TO SERVICE REPRESENTATIVE NURSE FOR THE CONTINUITY OF CARE. POC REVIEWED AND DISCUSSED WITH PM RN.
--- NOTE | 2020-11-24 19:45 | NUR ---
RECEIVED REPORT FROM DAY SHIFT RN PT AWAKE SITTING UP IN BED, AAOX4, DANISH SPEAKING. ST ON MONITOR 100S; HYPOTENSIVE ON LEVOPHED DRIP @ THIS TIME, PALPABLE PULSES NO EDEMA NOTED. LUNGS CLEAR EVEN UNLABORED ON ROOM AIR 100% SPO2. ABD SOFT NON DISTENDED, BSC NEAR BEDSIDE; PT STATES BLOODY STOOLS NOTED. S/P EGD. PATEL CATH IN PLACE, SKIN INTACT. BED LOCKED IN LOWEST POSITION. SAFETY PRECAUTIONS IN PLACE.
--- NOTE | 2020-11-24 23:44 | NUR ---
PT HAD X1 BM DARK STOOL. AMB TO BSC WITH ASSIST.
[2020-11-25] VITALS (23 sets, daily range): BP systolic 93–136; BP diastolic 47–74
--- NOTE | 2020-11-25 02:00 | NUR ---
PT HAVING EPISODES OF BRADYCARDIA 40S LOWEST HR 32, PT ASYMPTOMATIC; DENIES LIGHTHEADEDNESS; DIZZINESS. WILL CONTINUE TO OBSERVE.
--- NOTE | 2020-11-25 03:30 | NUR ---
PT HAS EYES CLOSED; NO ACUTE DISTRESS NOTED. WILL CONTINUE TO OBSERVE.
[2020-11-25] MEDS: PIPERACILLIN/TAZOBACTAM 2.25 GM in DEXTROSE 5% 50 ML IV SCH ×3 (05:00→21:41)
[2020-11-25 05:47] LABS: ANION GAP 14.5 (8-16); CREATININE 3.5 mg/dL (0.6-1.3); POTASSIUM 3.5 mmol/L (3.5-5.1)
[2020-11-25] MEDS: MIDODRINE 5 MG TAB PO SCH ×4 (06:16→18:44)
--- NOTE | 2020-11-25 06:27 | NUR ---
PT AMB TO BSC WITH ASSIST;X1 LIQUID BM DARK STOOL.
[2020-11-25 07:00] LABS: BASOPHILS # (AUTO) 0.1 K/uL (0.00-0.22); BASOPHILS % (AUTO) 0.5 % (0.0-2.0); EOSINOPHILS # (AUTO) 0.4 K/uL (0-0.4); EOSINOPHILS % (AUTO) 3.6 % (0.0-4.0); LYMPHOCYTES # (AUTO) 2.6 K/uL (2.0-11.5); LYMPHOCYTES % (AUTO) 25.2 % (20.5-51.1); MEAN CORPUSCULAR HEMOGLOBIN 34 pg (27-31); MEAN CORPUSCULAR HGB CONC 35 g/dL (33-37); MEAN CORPUSCULAR VOLUME 96.7 fL (80-94); MONOCYTES % (AUTO) 9.7 % (1.7-9.3); NEUTROPHILS # (AUTO) 6.2 K/uL (1.8-7.7); PLATELET COUNT (AUTO) 53 K/uL (140-450); RED BLOOD CELL COUNT(AUTO) 1.93 MIL/uL (4.20-6.10); RED CELL DISTRIBUTION WIDTH 17.3 % (11.6-13.7); WHITE BLOOD COUNT (AUTO) 10.2 K/uL (4.8-10.8)
[2020-11-25 07:05] LABS: HEMOGLOBIN 6.5 g/dL (12.0-18.0)
[2020-11-25 07:06] LABS: HEMATOCRIT 18.7 % (36-52)
--- NOTE | 2020-11-25 07:31 | NUR ---
RECEIVED BEDSIDE REPORT FROM PIGMENT PUMPER NURSE JACQUIE RN, PT RESTING, NO DISTRESS NOTED, AWAKE ALERT ABLE TO LET NEEDS KNOWN. PT ON ROOM AIR, SATURATING @ 98%, NO SOB NOTED. IV TO LEFT AC 20G PATENT INTACT, INFUSING, LEVOPHED @ 12MCG/MIN, AND 1/2 NS @ 40ML/HR, INFUSING WELL, IV TO L WRIST 22G, PATENT INTACT, INFUSING OCTREOTIDE DRIP @ 5ML/HR, INFUSING WELL. PATEL CATH IN PLACE DRAINING TO GRAVITY. NO C/O PAIN AT THIS MOMENT, PT NPO FOR HIDA SCAN. INITIAL ASSESSMENT DONE, ALL SAFETY PRECAUTION MET, CALL LIGHT WITHIN REACH, WILL CONTINUE TO MONITOR.
--- NOTE | 2020-11-25 07:34 | NUR ---
CALLED DR. HANSEN REGARDING PT HGB AND HCT. PER DR TO ORDER 2 UNITS OF PRBC, AND HOLD FLUID FOR NOW, TO CONTINUE FLUIDS AFTER PRBC HAS BEEN GIVEN, WILL CONTINUE WITH ORDER.
[2020-11-25] MEDS: NOREPINEPHRINE 4 MG in DEXTROSE 5% 250 ML IV PRN (08:00)
--- NOTE | 2020-11-25 08:00 | NUR ---
PT TAKEN TO HIDA SCAN. WILL CONTINUE TO MONITOR.
[2020-11-25] MEDS ORDERED: MORPHINE SULFATE 2 MG/ML SYR IVP SCH (09:00)
[2020-11-25] MEDS: LACTULOSE 20 GM/30 ML UDC PO SCH ×3 (09:00→17:00)
[2020-11-25] MEDS: SUCRALFATE 1 GM TAB PO SCH ×4 (09:00→21:41)
[2020-11-25] MEDS: PROPRANOLOL 20 MG TAB PO SCH ×3 (09:00→17:00)
--- NOTE | 2020-11-25 09:00 | NUR ---
PO MEDICATIONS NOT GIVEN DUE TO PT STILL HAS HIDA SCAN TO BE DONE AT 12. WILL CONTINUE TO MONITOR.
[2020-11-25] MEDS: NACL 0.45% 1,000 ML IV SCH (10:00)
[2020-11-25] MEDS: PANTOPRAZOLE 40 MG INJ VIAL IVP SCH ×2 (10:11→21:41)
--- NOTE | 2020-11-25 10:35 | NUR ---
CONSENT FOR PICC EXPLAINED TO PT VIA SHEET METAL WORKER APPRENTICE [phone], CONSENT SIGNED BY PT, ALL QUESTIONS ANSWERED, WILL CONTINUE TO MONITOR.
--- NOTE | 2020-11-25 10:45 | NUR ---
TALKED TO CHARTER BOAT CAPTAIN REGARDING PT REQUEST TO BE TRANSFERRED TO [facility]. NOTIFIED CANDICE REGARDING PT REQUEST.
--- NOTE | 2020-11-25 10:55 | NUR ---
DC PLANNIN40 YEARS OLD MALE PATIENT WAS ADMITTED FROM HOME WITH A DX OF UPPER GI BLEED. PT HAS A HX OF CIRRHOSIS, ESOPHAGEAL VARICES S/P BANDING AND SEVER ALCOHOL ABUSE. H/H ON ADMISSION STARTED ON IV SANDOSTATIN DRIPX1, ROCEPHIN IV ABX AND IV PROTONIX. DR MACKENZIE PERFORMED EGD SHOWED ESOPHAGEAL VARICES. ID, PULMO, AND NEPHRO FOLLOWING. DC PLAN PER PT RESPOND TO THE TREATMENT CM TO FOLLOW Addendum: 11/25/20 at 1111 by Noelle De Leon RN DC PLANNING: PT HAS AN ORDER BY DR SOTELO TRANSFER TO HIGHER LEVEL OF CARE FOR LIVER TRANSPLANT. [facility] REQUESTED [facility] AND FAXED TO [facility]. CM TO FOLLOW Addendum: 11/25/20 at 1137 by Noelle De Leon RN DC PLANNING: RECEIVED A CALL FROM [facility] SPOKE WITH SEVERIANO UPDATED PT'S CLINICAL AND PROVIDE THE CELL NUMBER OF REFERRING DR DR SOTELO. PER SEVERIANO WILL SUBMIT IT TO DIONICIO BRANHAM NURSE REFERENCE # [id number] WILL CALL BACK. CM TO FOLLOW Addendum: 11/25/20 at 1255 by Noelle De Leon RN DC PLANNING: CALLED [facility] WITH [facility] PROVIDE UPDATED CLINICALS AND REFERRING MD'S CONTACT NUMBER. CM TO FOLLOW Addendum: 11/25/20 at 1352 by Noelle De Leon RN DC PLANNING: RECEIVED A CALL FROM [facility] SPOKE WITH ORION WEBBER TECHNICIAN [employer] REQUESTING THE LATEST PT INR AND ALCOHOL LEVEL. NOTIFIED DR HANSEN NOTIFHUGO STRAUSS TO F/U . CM TO FOLLOW Addendum: 11/25/20 at 1356 by Noelle De Leon RN DC PLANNING [facility] # [phone] , [facility] # [phone] OPT 3 Addendum: 11/25/20 at 1407 by Ginny Frances CM DC PAPER FEEDER: ARRANGED WILL CALL TRANSPORTATION WITH [facility] [phone]. WHEN PATIENT IS READY FOR DC AND WE HAVE AN ACCEPTING FACILITY CALL TO ACTIVATE. Addendum: 11/26/20 at 1037 by Noelle De Leon RN DC PLANNING: CALLED [facility] TRANSF[facility] SPOKE WITH [employer] REQUESTING TRANSFER AGREEMENT, PCR COVID TEST AND [facility] FAXED THE LETTER AND THE LAB PCR IS PENDING. CM TO FOLLOW Addendum: 11/26/20 at 1407 by Noelle De Leon RN DC PLANNING: RECEIVED A CALL FROM G[place] [facility] TO TELE ORDER AND LETTER AGREEMENT SIGNED BY CM TO FOLLOW
--- NOTE | 2020-11-25 12:10 | NUR ---
PT WENT TO HIDA SCAN AGAIN FOR ONE MORE IMAGING, WILL CONTINUE TO MONITOR.
[2020-11-25] MEDS: ALBUMIN HUMAN 5 % 250 ML IV SCH ×3 (12:49→23:21)
--- NOTE | 2020-11-25 13:22 | NUR ---
PT BLOOD PRESSURE 125/77, MIDODRINE HELD DUE TO ELEVATED BP. WILL CONTINUE TO MONITOR.
--- NOTE | 2020-11-25 13:22 | NUR ---
DUE MEDICATIONS ADMINISTERED, PT TOLERATED WELL, WILL CONTINUE TO MONTIOR.
[2020-11-25 15:17] LABS: PROTHROMBIN TIME 17.9 secs (10.8-13.4)
[2020-11-25] MEDS: OCTREOTIDE ACETATE 1.25 MG in NACL 0.9% 250 ML IV SCH (16:11)
--- NOTE | 2020-11-25 17:14 | NUR ---
DUE MEDICATIONS ADMINISTERD, PT TOLERATED WELL, WILL CONTINUE TO MONTIOR.
--- NOTE | 2020-11-25 19:22 | NUR ---
ENDORSED PT TO JOURNEYMAN OPERATOR ASSISTANT NURSE FOR CONTINUOUS OF CARE.
--- NOTE | 2020-11-25 19:30 | NUR ---
RECEIVED CARE AND REPORT FROM DAYSHIFT RN. PATIENT A+OX4, ALERT AND ORIENTED TO PERSON, PLACE, TIME AND EVENT. GCS 15. EYES JAUNDICED. JAPANESE SPEAKING BUT KNOWS SOME MAORI. PATIENT LUNG SOUNDS CLEAR EQUAL BILATERALLY, SLIGHTLY DIMINISHED IN THE BASES. ABDOMEN BOWEL SOUNDS NORMOACTIVE PATIENT CONNECTED TO CONTINUOUS CARDIAC MONITORING, NSR AT 64 BPM, OCCASIONALLY GOES INTO SINUS GIANNI WHEN SLEEPING PER DAYSHIFT. PATIENT HAS IV ACCESS SITES IN THE LEFT HAND 22G PERIPHERAL IV AND RIGHT UPPER ARM PICC LINE DOUBLE LUMEN. DRIPS CURRENTLY RUNNING INCLUDE OCTREOTIDE AT 5ML/HR AND 1/2 NS AT 40 ML/HR. PATIENT WEIGHT IS 77 KG. PATIENT HAS A PATEL CATH IN PLACE, INTACT, PATENT AND DRAINING WELL. PATIENT LAYING IN A POSITION OF COMFORT, OFFLOADED FROM USE OF PRESSURE POINTS WITH PILLOWS AND FREQUENT REPOSITIONING. BED LOCKED AND LOWERED INTO A POSITION OF SAFETY. WILL CONTINUE TO CLOSELY MONITOR AND FREQUENTLY ROUND.
--- NOTE | 2020-11-25 20:00 | NUR ---
PATIENT RESTING IN A POSITION OF COMFORT, NO SIGNS OF DISTRESS. WILL CONTINUE TO CLOSELY MONITOR AND FREQUENTLY ROUND.
--- NOTE | 2020-11-25 20:15 | NUR ---
SPOKE WITH DIONICIO JARA, FROM [facility] ABOUT PATIENT PREPARING TO TRANSFER TO THAT FACILITY WITHIN 1-2 DAYS. FACILITY WILL KEEP IN CONTACT ABOUT PATIENT TRANSPORT STATUS.
--- NOTE | 2020-11-25 22:00 | NUR ---
PATIENT SLEEPING IN A POSITION OF COMFORT, TOLERATING CURRENT THERAPIES WELL, STILL NO SIGNS OF DISTRESS, WILL CONTINUE TO CLOSELY MONITOR AND FREQUENTLY ROUND.
[2020-11-26] VITALS (20 sets, daily range): BP systolic 95–120; BP diastolic 50–90
--- NOTE | 2020-11-26 | NUR ---
PATIENT TOLERATING THERAPIES WELL, NO COMPLAINTS OF PAIN, NO SIGNS OF DISTRESS, WILL CONTINUE TO CLOSELY MONITOR AND FREQUENTLY MONITOR.
--- NOTE | 2020-11-26 02:00 | NUR ---
PATIENT TOLERATING CURRENT THERAPIES WELL, NO COMPLAINTS OF PAIN, NO SIGNS OF DISTRESS, ON THE MONITOR 61 BPM, RR 16. PATIENT STATES WANTS TO CONTINUE TO SLEEP AND REST.
--- NOTE | 2020-11-26 04:00 | NUR ---
PATIENT HAS EPISODES OF BRADYCARDIA WHEN SLEEPING, UPON AWAKING, HR INCREASES TO NSR, NO SIGNS OF DISTRESS, TOLERATING THERAPIES WELL. WILL CONTINUE TO CLOSELY MONITOR AND FREQUENTLY ROUND.
[2020-11-26] MEDS: PIPERACILLIN/TAZOBACTAM 2.25 GM in DEXTROSE 5% 50 ML IV SCH ×2 (04:19→13:35)
[2020-11-26] MEDS: ALBUMIN HUMAN 5 % 250 ML IV SCH (05:23)
[2020-11-26 05:37] LABS: ANION GAP 14.7 (8-16); CARBON DIOXIDE 18.4 mmol/L (21-32); CREATININE 3.2 mg/dL (0.6-1.3); POTASSIUM 3.1 mmol/L (3.5-5.1)
--- NOTE | 2020-11-26 06:00 | NUR ---
GIVEN SPONGE BATH, PERICARE, GOWN CHANGE, ORAL CARE, AND [id number]. WILL CONTINUE TO CLOSELY MONITOR AND FREQUENTLY ROUND.
[2020-11-26] MEDS: MIDODRINE 5 MG TAB PO SCH ×3 (06:52→20:16)
--- NOTE | 2020-11-26 07:05 | NUR ---
RECEIVED PT AWAKE ALERT AND RESPONSIVE TO QUERIES.W/PATENT CONTRAPTIONS.NOT IN ANY FORM OF DISTRESS. ABLE TOREPOSITION SELF W/MINIMAL ASSISTANCE.MONITOR SCOPE SHOWED SINUS BRADYCARDIA.NO ECTOPY SEEN.
--- NOTE | 2020-11-26 07:20 | NUR ---
PATIENT CARE AND REPORT GIVEN TO JENNIFER JARA.
[2020-11-26 07:26] LABS: ALBUMIN 2.7 g/dL (3.4-5.0); BILIRUBIN,DIRECT 3.9 mg/dL (0.0-0.3); TOTAL BILIRUBIN 6.2 mg/dL (0.0-1.0)
[2020-11-26 08:00] LABS: HEMOGLOBIN 7.4 g/dL (12.0-18.0); MEAN CORPUSCULAR HEMOGLOBIN 32 pg (27-31); MEAN CORPUSCULAR HGB CONC 34 g/dL (33-37); MEAN CORPUSCULAR VOLUME 94.8 fL (80-94); RED BLOOD CELL COUNT(AUTO) 2.31 MIL/uL (4.20-6.10); RED CELL DISTRIBUTION WIDTH 16.1 % (11.6-13.7); WHITE BLOOD COUNT (AUTO) 2.9 K/uL (4.8-10.8)
[2020-11-26] MEDS: PROPRANOLOL 20 MG TAB PO SCH ×3 (08:40→20:15)
[2020-11-26 08:42] LABS: PLATELET COUNT (AUTO) 40 K/uL (140-450)
[2020-11-26 08:43] LABS: EOSINOPHILS % (MANUAL) 2 % (0-4); LYMPHOCYTES % (MANUAL) 24 % (20-46); MONOCYTES % (MANUAL) 10 % (5-12)
[2020-11-26] MEDS: PANTOPRAZOLE 40 MG INJ VIAL IVP SCH ×2 (08:48→20:17)
[2020-11-26] MEDS: SUCRALFATE 1 GM TAB PO SCH ×4 (08:49→20:20)
[2020-11-26] MEDS: LACTULOSE 20 GM/30 ML UDC PO SCH ×3 (08:59→20:17)
--- NOTE | 2020-11-26 10:00 | NUR ---
VISITED AND EXAMINED BY W/ORDER TO DOWNGRADE TO TELEMETRY UNIT ESTEFANI GALEANO .NO VACANT BED AVAILABLE IN TELEMETRY. MONITOR SCOPE SINUS BRADYCARDIA [id number] BEATS/MIN.
--- NOTE | 2020-11-26 12:00 | NUR ---
PT AWAKE AND TALKING ON THE PHONE TO HIS . NO COMPLAINTS MADE SO FAR.
--- NOTE | 2020-11-26 13:14 | NUR ---
11/26/20 RD INITIAL ASSESSMENT COMPLETED PLEASE REFER TO NUTRITION ASSESSMENT UNDER CARE ACTIVITY FOR ESTIMATED NUTRITIONAL NEEDS. 1. CONTINUE CLEAR LIQUID DIET AND ENSURE CLEAR TID 2. ADVANCE TO SOFT/BLAND DIET WITH ENSURE TID WHEN MEDICALLY CLEARED 3. RD TO FOLLOW-UP 2-3 DAYS, HIGH RISK DIONICIO CARMEN, MED
[2020-11-26] MEDS: NACL 0.45% 1,000 ML IV SCH (13:30)
--- NOTE | 2020-11-26 15:30 | NUR ---
PT HAD A BM SOFT AND BLACKISG MODERATE IN AMUNT.ABLE TO CLEAN HIMSELF W/MINIMAL ASSISTANCE.ASK FOR JELLO AND ATE HIMSELF. DENIES PAIN WHEN ASKED.
--- NOTE | 2020-11-26 17:30 | NUR ---
PCR RESULT NOT YET READY. ONCE READY KINDLY FAX THE RESULT TO [place] [phone].PT RESTING COMFORTABLY WATCHING TV.CLAIMED HE FEELS MUCH BETTER. FOR TRANSFER TO [facility] ROOM 104 BED A.
[2020-11-26] MEDS: OCTREOTIDE ACETATE 1.25 MG in NACL 0.9% 250 ML IV SCH (20:03)
--- NOTE | 2020-11-26 21:00 | NUR ---
RECEIVED A CALL FROM GELY FROM [facility] TRANSFER [facility] ([phone]). PER GELY, PATIENT HAS BEEN ACCEPTED AND WILL GO TO ROOM 5816. INFORMED PATIENT AND PATIENT'S ANCELMO. PATIENT AGREED TO BE TRANSFERRED
--- NOTE | 2020-11-26 21:30 | NUR ---
GAVE PATIENT REPORT TO ESTEFANI KRAUSE AT [facility]
--- NOTE | 2020-11-26 21:43 | NUR ---
DISCHARGE TO [facility] NILDA GALAN PROCEDURE Addendum: 11/26/20 at 2144 by Alden Ingram RN Amended: Links added.
== END 2020-11-26 21:45 | disposition short-term general hospital (02) | DRG 280 ==
LOC: MED 10:04 → MTU 11:19 → MMU 11-22 17:54 → MIC 11-23 14:00 → MTU 11-26 19:39
PROVIDERS: ADMIT Hospitalist; ATTEND Hospitalist
PROC: 06L38CZ Occlusion of Esophageal Vein with Extraluminal Device, Via Natural or Artificial Opening Endoscopic (ICD-10-PCS; principal; 2020-11-21 14:00)
PROC: 30233N1 Transfusion of Nonautologous Red Blood Cells into Peripheral Vein, Percutaneous Approach (ICD-10-PCS; 2020-11-22)
PROC: 0DJ08ZZ Inspection of Upper Intestinal Tract, Via Natural or Artificial Opening Endoscopic (ICD-10-PCS; 2020-11-24)
PROC: 02HV33Z Insertion of Infusion Device into Superior Vena Cava, Percutaneous Approach (ICD-10-PCS; 2020-11-25)
DX: K70.30 Alcoholic cirrhosis of liver without ascites (principal); I85.11 Secondary esophageal varices with bleeding; A41.9 Sepsis, unspecified organism; R57.8 Other shock; E44.0 Moderate protein-calorie malnutrition; Z68.26 Body mass index [BMI] 26.0-26.9, adult; N17.0 Acute kidney failure with tubular necrosis; D62 Acute posthemorrhagic anemia; R65.21 Severe sepsis with septic shock; E87.0 Hyperosmolality and hypernatremia; F10.10 Alcohol abuse, uncomplicated; K76.6 Portal hypertension; K80.20 Calculus of gallbladder without cholecystitis without obstruction; K44.9 Diaphragmatic hernia without obstruction or gangrene; K31.89 Other diseases of stomach and duodenum; Z20.822 Contact with and (suspected) exposure to COVID-19
CPT/HCPCS: 36415; 71045; 76705; 76770; 78445; 80048; 80053; 80076; 81001; 82140; 82330; 82570; 82607; 82728; 82746; 82948; 83036; 83540; 83690; 83735; 84100; 84300; 85025; 85045; 85610; 86886; 86900; 86901; 86920; 87040; 87081; 87086; 96365; 96375; 99285; A9510; C9113; G0482; J0171; J0696; J1200; J2001; J2250; J2270; J2354; J2543; J3010; J3480; J3490; J7030; J7060; P9016; P9041; U0003